=== PATIENT | female | born 2005 | race Hispanic/Latino ===

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

== ENCOUNTER 2025-01-11 01:44 | Emergency (ER) | payer OTHER, SELFPAY ==
--- OUTSIDE RECORDS SUMMARY | 2025-01-11 01:49 | XMS REPORT | Continuity of Care Document ---
Author Name Unknown Address [address] [facility] [place] [address] [facility] Address [address] [facility] [place] [address] Care Team Providers Care [employer] Name Role Phone PCP, PATIENT DOES NOT HAVE A Primary Care Physic eugene Unavailable SAVANAH GONZALES Attending Clinician Unavailable SAVANAH GONZALES Attending Clinician Unavailable Doctor Unassigned, [place] Attending Clinician U Savanah Wilson MD Attending Clinician [phone] Anders Vences MD Attending Clinician [phone] Lab, Rafa Bean Attending Clinician Unavailable 2, [facility] Attending Clinician Unavailable PARVEEN TURCIOS Attending Clinician Unavailable PARVEEN TURCIOS Attending Clinician Unavailable PARVEEN TURCIOS Attending Clinician Unavailable 3, [facility] Room Attending Clinician UnavailParveen Ceja MD Attending Clinician [phone] Doctor Unassigned, [place] Attending Clinician U navailable Gonzalo, Ang - Db Attending Clinician Unavailable SAVANAH GONZALES Admitting Clinician Unavailable Savanah Gonzales MD Admitting Clinician [phone] Payers Payer Name Policy Type Policy Number Effective Date Expirati on Date Source [facility] [id number] 2024 00:00:00 Problems Condition Name Condition Details Condition Category Status Onset Date Resolution Date Last Treatment Date Treating Clinician Comments Source 39 weeks gestation of 39 weeks gestation of Disease Resolve d 2023-11 00:00: 2024-11-17 00:00:00 2024-11-17 15:48:21 [facility] Liveborn infant, of sher , born in hospital by vaginal delivery Liveborn , of sher , born in hospital by vaginal delivery Disease Resolve d 2023- 2-03 00:00: 00 2024-11-17 00:00:00 2024-11-17 15:24:56 [facility] Encounter for induction of labor Encounter for induction of labor Disease Resolve d 2023-11 2- 00:00: 00 2024-11-17 00:00:00 2024-11-17 15:48:21 [facility] Encounter for supervisio n of normal first in second trimester Encounter for supervisio n of normal first in second trimester Disease Resolve d 0 6-12 00:00: 00 2024-10-06 00:00:00 2024-10-06 07:19:11 [facility] 15 weeks gestation of 15 weeks gestation of Disease Resolve d 12 00:00: 00 2024-10-06 00:00:00 2024-10-06 07:19:08 [facility] Allergies, Adverse Reactions, Alerts Allergy Name Allergy Type Status Severity Reaction(s) Onset Date Inactive Date Treating Clinician Comments Source NO KNOWN ALLERGIE S Drug Class Active [facility] Family History Family Member Diagnosis Comments Start Date Stop Date Sourc e Natural father [facility] Maternal grandmother [facility] Natural mother Heart [facility] Social History Social Habit Start Date Stop Date Quantity Comments Source ASSERTION 2024-01-15 00:00:00 [facility] History of tobacco use Cigarette Smoker [facility] Tobacco Comment 2024-10-06 00:00:00 2024-10-06 00:00:00 Quit 12/2023 [facility] History of Social function 2024-08-25 00:00:00 2024-08-25 00:00:00 [facility] Tobacco use and exposure 2024-04-15 00:00:00 2024-04-15 00:00:00 Smokeless tobacco non-user [facility] Alcoholic beverage intake 2024-04-15 00:00:00 2024-04-15 00:00:00 Ex-drinker (finding) [facility] Sex assigned at 2005 00:00:00 2005 00:00:00 [facility] Smoking Status Start Date Stop Date Source Ex-smoker 2024-04-15 00:00:00 2024-04-15 00:00:00 [facility] Medications Ordered Medication Name Filled Medication Name Start Date Stop Date Current Medication? Ordering Clinician Indication Dosage Frequency Signature (SIG) Comments Components Source levonorgest reL (MIRENA) IUD 1 Device 11-18 21:30: 00 11-18 20:34 :00 No [id number] 1{devic e} 1 Device, Intrauteri ne, ONCE, 1 dose, On Sat11/18/24 at 1530, Routine [facility] ibuprofen (IBU) tablet 600 mg 2023-11 03:17: 20 Yes 600mg 600 mg, Oral, Q8HPRN, Starting on Sat10/06/24 at 2117, Until Discontinu ed, Routine, Pain (scale 4-6) [facility] vitamin w/FA tablet 2023-11 00:00: 00 Yes [id number] 102 1{tbl} Take 1 tablet by mouth in the morning. [facility] docusate 100 mg capsule 2023-11 00:00: 00 Yes [id number] 102 200mg Take 2 capsules by mouth once daily as needed for Constipati on. [facility] ferrous sulfate 325 mg (65 mg iron) tablet 2023-11 00:00: 00 Yes [id number] 102 325mg Take 1 tablet by mouth in the morning. [facility] ibuprofen 800 mg tablet 2023-11 00:00: 00 Yes [id number] 102 800mg Take 1 tablet by mouth every 8 (eight) hours as needed (pain). Take with food or milk. [facility] acetaminoph en (TYLENOL) tablet 650 mg 2023-11 23:17: 25 Yes 650mg 650 mg, Oral, Q8HPRN, Starting on Sat10/06/24 at 1717, Until Discontinu ed, Routine, Pain (scale 4-6), Alternate with ibuprofen for pain scale 4-6, [facility] HYDROcodone -acetaminop hen (NORCO 5) tablet 1 tablet 2023-11 23:16: 37 Yes 1{tbl} 1 tablet, Oral, Q6HPRN, Starting on Sat10/06/24 at 1716, Until Discontinu ed, Routine, Pain (scale 7-10) [facility] diphenhydrA MINE (BENADRYL) tablet 25 mg 2023-11 23:16: 37 Yes 25mg [facility] ondansetron (ZOFRAN (PF)) injection 4 mg 2023-11 23:16: 37 Yes 4mg [facility] simethicone (GAS RELIEF (SIMETHICON E)) chewable tablet 160 mg 2023-11 23:16: 37 Yes 160mg [facility] docusate (COLACE) capsule 200 mg 2023-11 23:16: 37 Yes 200mg [facility] magnesium hydroxide (MILK OF MAGNESIA) 400 mg/5 mL suspension 30 mL 2023-11 23:16: 37 Yes 30mL [facility] benzocaine- menthol (DERMOPLAST ) 20-0.5 % topical spray 2023-11 23:16: 37 Yes Topical, PRN, Starting on Sat10/06/24 at 1716, Until Discontinu ed, Routine, Perineum discomfort [facility] amnioinfusi on IV infusion via PUMP 0.9 NaCL 500 mL 2023-11 18:15: 00 10-06 19:04 :00 No 500mL at 500 mL/hr, Intrauteri ne, ONCE, 1 dose, On Sat10/06/24 at 1215, GUNNAR, Infuse via Intrauteri ne Pressure Catheter. The infusion is started at 500 mL/hr by volume controlled infusion pump. "The infusion pump should be clearly labeled AMNIOINF USION. Once 500 mL has been infused, the infusion may be discontinu ed. Notify Finance Consultant if uterine resting tone exceeds 25 mmHg at any time during the amnioinfus ion. Obstetrics (JOSE ARMANDO) Aminoinfus ion Orders [facility] terbutaline (BRETHINE) injection 0.25 mg 2023-11 17:30: 00 10-06 17:32 :00 No .25mg 0.25 mg, Subcutaneo us, ONCE, 1 dose, On Sat10/06/24 at 1145, Routine [facility] oxytocin (PITOCIN) 30 units in NS 500 mL IV infusion 2023-11 15:30: 00 10-06 23:18 :22 No 2mU/min at 2-40 mL/hr, IV Infusion, TITRATE, Starting on Sat10/06/24 at 0930, Until Sat10/06/24 at 1718, GUNNAR [facility] fentaNYL-ro pivacaine 2 mcg/mL-0.1 % (PF) in NS 200 mL epidural infusion RTU 2023-11 14:31: 00 10-07 19:14 :32 No Intra-op [facility] lidocaine-e pinephrine (XYLOCAINE W/EPINEPHRI NE) 1.5 %-1:200,000 injection 2023-11 14:31: 00 10-07 19:14 :32 No Epidural, ONCE INTRA PROCEDURE, Starting on Sat10/06/24 at 0831, Until Sat10/07/24 at 1314, Routine, Intra-op [facility] miSOPROStol (CYTOTEC) quarter-tab let 25 mcg 2023-11 07:00: 00 10-06 06:42 :00 No 25ug 25 mcg, Oral, ONCE, 1 dose, On Sat10/06/24 at 0100, Routine [facility] proMETHazin e (PHENERGAN) 25 mg in NS 50 mL IV piggyback (CNR) 2023-11 05:49: 38 10-06 23:18 :22 No 25mg 25 mg, IV Piggyback, at 200 mL/hr Administer over 15 Minutes, Q6HPRN, Starting on Sat10/05/24 at 2349, Until Sat10/06/24 at 1718, Routine, Nausea and Vomiting (N/V) [facility] FENTanyl (PF) (SUBLIMAZE) injection 100 mcg 2023-11 05:49: 00 10-06 23:18 :22 No 100ug 100 mcg, Slow IV Push, Q1HPRN, Starting on Sat10/05/24 at 2349, Until Sat10/06/24 at 1718, Routine, Pain (scale 7-10) [facility] lactated ringers IV infusion 250 mL 2023-11 05:43: 47 10-06 23:18 :22 No 250mL at 999 mL/hr, 250 mL, IV Infusion, PRN - SEE INSTRUCTIO NS, Starting on Sat10/05/24 at 2343, Until Sat10/06/24 at 1718, Routine [facility] D5W-LR IV infusion 1,000 mL 2023-11 05:43: 47 10-06 23:18 :22 No 1000mL at 1-75 mL/hr, IV Infusion, TITRATE, Starting on Sat10/05/24 at 2343, Until Sat10/06/24 at 1718, Routine [facility] azithromyci n 500 mg tablet 05-27 00:00: 00 07-16 00:00 :00 No [id number] 01 1000mg Take 2 tablets by mouth in the morning. [facility] ferrous sulfate (IRON, FERROUS SULFATE,) 325 mg (65 mg iron) tablet 04-24 00:00: 00 04-24 00:00 :00 No 325mg Take 1 tablet by mouth in the morning. [facility] azithromyci n 500 mg tablet 04-18 00:00: 00 05-26 00:00 :00 No [id number] 01 1000mg Take 2 tablets by mouth in the morning. [facility] vit no.124/iron /folic ( VITAMIN ORAL) 12 14:45: 41 10-07 00:00 :00 No Take by mouth. [facility] Immunizations Ordered Immunization Name Filled Immunization Name Date Status Comments Source RSV, Bivalent Protein Subunit RSVprdF 2024-08-11 00:00:00 Completed [facility] TDAP 2024-07-16 00:00:00 Completed [facility] Flu Injectable MDCK Pres-Free (FLUCELVAX) 2024-07-16 00:00:00 Completed TDAP Unknown Completed [facility] Flu Injectable MDCK Pres-Free (FLUCELVAX) Unknown Completed [facility] TDAP Unknown Completed [facility] Flu Injectable MDCK Pres-Free (FLUCELVAX) Unknown Completed [facility] Vital Signs Vital Name Observation Time Observation Value Comments S ource Systolic blood pressure 2024-11-18 19:45:00 112 mm[Hg] [facility] Diastolic blood pressure 2024-11-18 19:45:00 68 mm[Hg] [facility] Heart rate 2024-11-18 19:45:00 106 /min [facility] Respiratory rate 2024-11-18 19:45:00 18 /min [facility] Body height 2024-11-18 19:45:00 162.6 cm [facility] Body weight 2024-11-18 19:45:00 96.616 kg [facility] BMI 2024-11-18 19:45:00 36.56 kg/m2 [facility] Systolic blood pressure 2024-11-17 21:36:00 109 mm[Hg] [facility] Diastolic blood pressure 2024-11-17 21:36:00 71 mm[Hg] [facility] Heart rate 2024-11-17 21:36:00 93 /min [facility] Body temperature 2024-11-17 21:36:00 36.94 Pam [facility] Respiratory rate 2024-11-17 21:36:00 16 /min [facility] Body height 2024-11-17 21:36:00 165.1 cm [facility] Body weight 2024-11-17 21:36:00 96.616 kg [facility] BMI 2024-11-17 21:36:00 35.45 kg/m2 [facility] Systolic blood pressure 2024-10-07 21:11:00 97 mm[Hg] [facility] Diastolic blood pressure 2024-10-07 21:11:00 50 mm[Hg] [facility] Heart rate 2024-10-07 21:11:00 80 /min [facility] Body temperature 2024-10-07 21:11:00 36.44 Pam [facility] Respiratory rate 2024-10-07 21:11:00 16 /min [facility] Oxygen saturation in Arterial blood by Pulse oximetry 2024-10-07 21:11:00 100 /min [facility] Body height 2024-10-06 05:45:00 165.1 cm [facility] Body weight 2024-10-06 05:45:00 104.327 kg [facility] BMI 2024-10-06 05:45:00 38.27 kg/m2 [facility] Systolic blood pressure 2024-09-29 22:02:00 90 mm[Hg] [facility] Diastolic blood pressure 2024-09-29 22:02:00 63 mm[Hg] [facility] Heart rate 2024-09-29 22:02:00 86 /min [facility] Respiratory rate 2024-09-29 22:02:00 18 /min [facility] Body height 2024-09-29 22:02:00 165.1 cm [facility] Body weight 2024-09-29 22:02:00 103.193 kg [facility] BMI 2024-09-29 22:02:00 37.86 kg/m2 [facility] Systolic blood pressure 2024-09-22 21:51:00 106 mm[Hg] [facility] Diastolic blood pressure 2024-09-22 21:51:00 60 mm[Hg] [facility] Heart rate 2024-09-22 21:51:00 100 /min [facility] Respiratory rate 2024-09-22 21:51:00 18 /min [facility] Body height 2024-09-22 21:51:00 165.1 cm [facility] Body weight 2024-09-22 21:51:00 101.696 kg [facility] BMI 2024-09-22 21:51:00 37.31 kg/m2 [facility] Systolic blood pressure 2024-09-15 22:04:00 107 mm[Hg] [facility] Diastolic blood pressure 2024-09-15 22:04:00 69 mm[Hg] [facility] Heart rate 2024-09-15 22:04:00 98 /min [facility] Body temperature 2024-09-15 22:04:00 37 Pam [facility] Respiratory rate 2024-09-15 22:04:00 18 /min [facility] Body height 2024-09-15 22:04:00 165.1 cm [facility] Body weight 2024-09-15 22:04:00 100.88 kg [facility] BMI 2024-09-15 22:04:00 37.01 kg/m2 [facility] Body height 2024-09-08 22:37:00 162.6 cm [facility] Body weight 2024-09-08 22:37:00 102.059 kg [facility] BMI 2024-09-08 22:37:00 38.62 kg/m2 Univ [facility] Systolic blood pressure 2024-09-08 22:24:00 110 mm[Hg] [facility] Diastolic blood pressure 2024-09-08 22:24:00 72 mm[Hg] [facility] Heart rate 2024-09-08 22:24:00 97 /min [facility] Body temperature 2024-09-08 22:24:00 36.72 Pam [facility] Respiratory rate 2024-09-08 22:24:00 16 /min [facility] Systolic blood pressure 2024-08-25 20:34:00 112 mm[Hg] [facility] Diastolic blood pressure 2024-08-25 20:34:00 74 mm[Hg] [facility] Heart rate 2024-08-25 20:34:00 112 /min [facility] Respiratory rate 2024-08-25 20:34:00 18 /min [facility] Body weight 2024-08-25 20:34:00 100.018 kg Univ [facility] BMI 2024-08-25 20:34:00 37.85 kg/m2 [facility] Oxygen saturation in Arterial blood by Pulse oximetry 2024-08-25 20:34:00 100 /min [facility] Systolic blood pressure 2024-08-11 20:10:00 109 mm[Hg] [facility] Diastolic blood pressure 2024-08-11 20:10:00 72 mm[Hg] [facility] Heart rate 2024-08-11 20:10:00 103 /min [facility] Body height 2024-08-11 20:10:00 162.6 cm [facility] Body weight 2024-08-11 20:10:00 97.977 kg [facility] BMI 2024-08-11 20:10:00 37.08 kg/m2 [facility] Systolic blood pressure 2024-07-28 13:41:00 114 mm[Hg] [facility] Diastolic blood pressure 2024-07-28 13:41:00 70 mm[Hg] [facility] Heart rate 2024-07-28 13:41:00 99 /min [facility] Body temperature 2024-07-28 13:41:00 37 Pam [facility] Respiratory rate 2024-07-28 13:41:00 18 /min [facility] Body height 2024-07-28 13:41:00 162.6 cm [facility] Body weight 2024-07-28 13:41:00 95.709 kg [facility] BMI 2024-07-28 13:41:00 36.22 kg/m2 [facility] Systolic blood pressure 2024-07-16 20:36:00 120 mm[Hg] [facility] Diastolic blood pressure 2024-07-16 20:36:00 67 mm[Hg] [facility] Heart rate 2024-07-16 20:36:00 76 /min [facility] Body temperature 2024-07-16 20:36:00 36.5 Pam [facility] Respiratory rate 2024-07-16 20:36:00 18 /min [facility] Body weight 2024-07-16 20:36:00 94.802 kg [facility] BMI 2024-07-16 20:36:00 35.87 kg/m2 [facility] Systolic blood pressure 2024-06-30 20:38:00 129 mm[Hg] [facility] Diastolic blood pressure 2024-06-30 20:38:00 73 mm[Hg] [facility] Heart rate 2024-06-30 20:38:00 70 /min [facility] Respiratory rate 2024-06-30 20:38:00 18 /min [facility] Body height 2024-06-30 20:38:00 162.6 cm [facility] Body weight 2024-06-30 20:38:00 90.719 kg [facility] BMI 2024-06-30 20:38:00 34.33 kg/m2 [facility] Systolic blood pressure 2024-06-17 18:39:00 109 mm[Hg] [facility] Diastolic blood pressure 2024-06-17 18:39:00 71 mm[Hg] [facility] Heart rate 2024-06-17 18:39:00 62 /min [facility] Respiratory rate 2024-06-17 18:39:00 15 /min [facility] Body height 2024-06-17 18:39:00 162.6 cm [facility] Body weight 2024-06-17 18:39:00 88.905 kg [facility] BMI 2024-06-17 18:39:00 33.64 kg/m2 [facility] Systolic blood pressure 2024-05-26 20:52:00 107 mm[Hg] [facility] Diastolic blood pressure 2024-05-26 20:52:00 61 mm[Hg] [facility] Heart rate 2024-05-26 20:52:00 90 /min [facility] 2024-05-26 20:52:00 16 /min [facility] Body height 2024-05-26 20:52:00 162.6 cm [facility] Body weight 2024-05-26 20:52:00 84.823 kg [facility] BMI 2024-05-26 20:52:00 32.10 kg/m2 [facility] Systolic blood pressure 2024-04-15 19:43:00 102 mm[Hg] [facility] Diastolic blood pressure 2024-04-15 19:43:00 70 mm[Hg] [facility] Heart rate 2024-04-15 19:43:00 84 /min [facility] Res[facility] 2024-04-15 19:43:00 18 /min [facility] Body height 2024-04-15 19:43:00 163.8 cm [facility] Body weight 2024-04-15 19:43:00 81.194 kg [facility] BMI 2024-04-15 19:43:00 30.25 kg/m2 [facility] Systolic blood pressure 2024-11-18 19:45:00 112 mm[Hg] [facility] Diastolic blood pressure 2024-11-18 19:45:00 68 mm[Hg] [facility] Heart rate 2024-11-18 19:45:00 106 /min [facility] Res[facility] rate 2024-11-18 19:45:00 18 /min [facility] Body height 2024-11-18 19:45:00 162.6 cm [facility] Body weight 2024-11-18 19:45:00 96.616 kg [facility] BMI 2024-11-18 19:45:00 36.56 kg/m2 [facility] Body temperature 2024-11-17 21:36:00 36.94 Pam [facility] Oxygen saturation in Arterial blood by Pulse oximetry 2024-10-07 21:11:00 100 /min [facility] Procedures Procedure Date / Time Performed Performing Clinician Source POCT TEST 2024-11-18 00:00:00 Adum, Savanah Bach [facility] POCT TEST 2024-11-18 00:00:00 Adum, Savanah Bach [facility] GC & CHLAMYDIA AMPLIFIED ASSAY 2024-11-17 22:06:00 Adum, Savanah Bach [facility] CBC WITH DIFF 2024-10-07 10:17:00 Adum, Savanah [facility] CBC WITH DIFF 2024-10-07 10:17:00 Adum, Savanah [facility] CENTRAL NEURAXIAL BLOCK 2024-10-06 15:15:00 Kibmer Vences [facility] CENTRAL NEURAXIAL BLOCK 2024-10-06 15:15:00 Kimber Vences [facility] CBC WITH DIFF 2024-10-06 06:25:00 Adum, [facility] HEPATITIS B SURFACE ANTIGEN 2024-10-06 06:25:00 Adum, Savanah Bach [facility] HB ABO GROUPING 2024-10-06 06:25:00 Adum, Savanah Huntley [facility] ADC OR REHANA ONLY - RPR 2024-10-06 06:25:00 Adum, Savanah Bach [facility] HIV 1/2 AG-AB WITH REFLEX 2024-10-06 06:25:00 Adum, Savanah Bach [facility] HEPATITIS B SURFACE ANTIGEN 2024-10-06 06:25:00 Adum, Savanah Bach [facility] ADC OR REHANA ONLY - RPR 2024-10-06 06:25:00 Adum, Savanah Bach [facility] HB ABO GROUPING 2024-10-06 06:25:00 Adum, Savanah Huntley [facility] CBC WITH DIFF 2024-10-06 06:25:00 Adum, Savanah [facility] HIV 1/2 AG-AB WITH REFLEX 2024-10-06 06:25:00 Adum, Savanah Mikala [facility] POCT URINALYSIS W/O SPECIFIC GRAVITY 2024-09-29 00:00:00 Adum, Savanah Bach [facility] POCT URINALYSIS W/O SPECIFIC GRAVITY 2024-09-29 00:00:00 Adum, Savanah Mikala [facility] POCT URINALYSIS W/O SPECIFIC GRAVITY 2024-09-22 00:00:00 Adum, Savanah Mikala [facility] POCT URINALYSIS W/O SPECIFIC GRAVITY 2024-09-22 00:00:00 Adum, Savanah Mikala [facility] DME/SUPPLY JUSTIFICATION 2024-09-18 17:36:53 Doc tor Unassigned, [place] [facility] DME/SUPPLY JUSTIFICATION 2024-09-18 17:36:53 Doc tor Unassigned, [place] [facility] POCT URINALYSIS W/O SPECIFIC GRAVITY 2024-09-15 22:02:00 Adum, Savanah Bach [facility] DSU PRE-OP 2024-09-08 22:50:46 Doctor Unass igned, [place] [facility] >14 WEEKS US LIMITED 2024-09-08 22:39:36 Adum, Savanah Bach [facility] POCT URINALYSIS W/O SPECIFIC GRAVITY 2024-09-08 22:24:00 Adum, Savanah Mikala [facility] POCT URINALYSIS W/O SPECIFIC GRAVITY 2024-08-25 20:36:00 Adum, Savanah Mikala [facility] RSV, BIVALENT, PROTEIN SUBUNIT RSVPREF, DILUENT RECONSTITUTED, 0.5 ML, PF, (ABRYSVO) 2024-08-11 20:34:31 Adum, Savanah Mikala [facility] POCT URINALYSIS W/O SPECIFIC GRAVITY 2024-08-11 00:00:00 Adum, Savanah Mikala [facility] POCT URINALYSIS W/O SPECIFIC GRAVITY 2024-07-28 00:00:00 Adum, Savanah Mikala [facility] TDAP VACCINE, >11 YRS, IM 2024-07-16 21:26:08 Adum, Savanah Bach [facility] FLU VACC (2502-2610), 6 MO-64 YRS, .5ML, IM, TIV (FLUCELVAX) 2024-07-16 21:26:08 Adum, Savanah Bach [facility] POCT URINALYSIS W/O SPECIFIC GRAVITY 2024-07-16 00:00:00 Adum, Savanah Bach [facility] POCT URINALYSIS W/O SPECIFIC GRAVITY 2024-06-30 00:00:00 Adum, Savanah Bach [facility] POCT URINALYSIS W/O SPECIFIC GRAVITY 2024-06-17 00:00:00 Adum, Savanah Bach [facility] SECOND AND THIRD TRIMESTER ULTRASOUND 2024-06-15 16:39:00 Adum, Savanah Bach [facility] POCT URINALYSIS W/O SPECIFIC GRAVITY 2024-05-26 00:00:00 Adum, Savanah Bach [facility] POCT URINALYSIS W/O SPECIFIC GRAVITY 2024-05-22 00:00:00 Adum, Savanah Bach [facility] SCANNED LAB RESULTS 2024-05-05 19:59:35 Doctor U elyse, [place] [facility] SCANNED LAB RESULTS 2024-05-05 19:59:29 Doctor Chaparrita pappas, [place] [facility] URINE DRUG (IMMUNOASSAY) - COMPREHENSIVE DRUG SCREEN 2024-04-20 15:21:00 Adum, Savanah Bach [facility] URINE CULTURE 2024-04-20 15:21:00 Adum, Savanah [facility] HCV ANTIBODY 2024-04-20 15:18:00 [facility] HOUR POST PRAND[facility] 2024-04-20 15:18:00 Adum, Savanah Bach [facility] ALPHA FETOPROTEIN-MATERNAL SER 2024-04-20 15:18:00 Adum, Savanah Bach [facility] CBC WITH DIFF 2024-04-20 15:18:00 Adum, Savanah [facility] RUBELLA SCREEN IGG 2024-04-20 15:18:00 Adum, Savanah Bach [facility] VZV ANTIBODY SCREEN 2024-04-20 15:18:00 Adum, Savanah Bach [facility] HEPATITIS B SURFACE ANTIGEN 2024-04-20 15:18:00 Adum, Savanah Bach [facility] HCV ANTIBODY 2024-04-20 15:18:00 Adum, [facility] HB ABO GROUPING 2024-04-20 15:18:00 Adum, [facility] - RPR 2024-04-20 15:18:00 Adum, Savanah Bach [facility] HIV 1/2 AG-AB WITH REFLEX 2024-04-20 15:18:00 Adum, Savanah Bach [facility] PAP SMEAR-LIQUID BASED-CP 2024-04-15 20:19:00 Adum, Savanah Bach [facility] POCT URINALYSIS W/O SPECIFIC GRAVITY 2024-04-15 00:00:00 Adum, Savanah Bach [facility] Encounters Start Date/Time End Date/Time Encounter Type Admission Type Attending [facility] Care Facility Care Department Encounter ID Source 2024-09-30 15:00:48 Outpatient P [facility] JOSE ARMANDO [id number] [facility] 2025-01-19 15:00:00 2025-01-19 15:00:00 Outpatient R SAVANAH GONZALES [facility] [id number] [facility] 2025-01-06 13:00:00 2025-01-06 13:00:00 Outpatient R SAVANAH GONZALES [facility] [id number] [facility] 2024-05-05 00:00:00 2024-12-19 07:23:53 Orders Only Doctor Unassigned, [place] Doctor Unassigned, [place] [facility] ([place] 1.2.840.114 350.1.13.10 4.2.7.2.686 [id number] [facility] 2024-05-05 00:00:00 2024-12-19 07:23:36 Orders Only Doctor Unassigned, [place] Doctor Unassigned, [place] [facility] ([place] 1.2.840.114 350.1.13.10 4.2.7.2.686 [id number] [facility] 2024-09-08 00:00:00 2024-12-19 06:41:20 Orders Only Doctor Unassigned, [place] Doctor Unassigned, [place] [facility] ([place] 1.2.840.114 350.1.13.10 4.2.7.2.686 [id number] [facility] 2024-09-18 00:00:00 2024-12-19 06:37:36 Orders Only Doctor Unassigned, [place] 1.2.840.1 69397.1.1 3.104.2.7 .3.271797 .8 [id number] [facility] 2024-11-09 00:00:00 2024-12-12 18:20:16 Patient Secure Msg Doctor Unassigned, [place] 1.2.840.1 30112.1.1 3.104.2.7 .3.889771 .8 [id number] [facility] 2024-11-18 14:00:00 2024-11-18 14:24:55 Outpatient R SAVANAH GONZALES [facility] [id number] [facility] 2024-11-18 14:00:00 2024-11-18 14:24:55 Office Visit Savanah Gonzales 1.2.840.1 69509.1.1 3.104.2.7 .3.433587 .8 [id number] [facility] 2024-11-18 00:00:00 2024-11-18 00:00:00 Travel 1.2.840.1 39154.1.1 3.104.2.7 .3.597595 .8 1.2.840.114 350.1.13.10 4.2.7.3.698 084.8 [id number] [facility] 2024-11-17 15:00:00 2024-11-17 16:02:52 Out[place] [id number] [facility] 2024-11-17 15:00:00 2024-11-17 16:02:52 Routine Visit Savanah Gonzales 1.2.840.1 11794.1.1 3.104.2.7 .3.658330 .8 [id number] [facility] 2024-11-17 11:00:00 2024-11-17 11:00:00 Outpatient R ADUMSAVANAH [facility] [id number] [facility] 2024-11-17 00:00:00 2024-11-17 00:00:00 Travel 1.2.840.1 83878.1.1 3.104.2.7 .3.883950 .8 1.2.840.114 350.1.13.10 4.2.7.3.698 084.8 [id number] [facility] 2024-10-05 23:41:00 2024-10-07 19:38:00 Inpatient P ADSAVANAH MATSON [facility] JOSE ARMANDO [id number] [facility] 2024-10-05 23:41:00 2024-10-07 19:38:00 Hospital Encounter Savanah Gonzales 1.2.840.1 18608.1.1 3.104.2.7 .3.425704 .8 [id number] [facility] 2024-10-06 08:03:00 2024-10-06 18:30:00 Anesthesia Event Anders Vences 1.2.840.1 38300.1.1 3.104.2.7 .3.815328 .8 [id number] [facility] 2024-10-06 00:00:00 2024-10-06 00:00:00 Travel 1.2.840.1 47752.1.1 3.104.2.7 .3.155170 .8 1.2.840.114 350.1.13.10 4.2.7.3.698 084.8 [id number] [facility] 2024-10-05 23:34:39 2024-10-05 23:34:00 Emergency [facility] [id number] [facility] 2024-10-05 00:00:00 2024-10-05 23:34:00 Emergency 1.2.840.1 79341.1.1 3.104.2.7 .3.503982 .8 [id number] [facility] 2024-09-30 00:00:00 2024-09-30 13:55:51 Telephone Savanah Gonzales 1.2.840.1 72916.1.1 3.104.2.7 .3.806800 .8 [id number] [facility] 2024-09-29 15:45:00 2024-09-29 16:25:17 Outpatient R SAVANAH GONZALES [facility] [id number] [facility] 2024-09-29 15:45:00 2024-09-29 16:25:17 Routine Visit Savanah Gonzales 1.2.840.1 68846.1.1 3.104.2.7 .3.505602 .8 [id number] [facility] 2024-09-29 00:00:00 2024-09-29 00:00:00 Travel 1.2.840.1 07549.1.1 3.104.2.7 .3.514359 .8 1.2.840.114 350.1.13.10 4.2.7.3.698 084.8 [id number] [facility] 2024-09-22 16:00:00 2024-09-22 16:41:16 Outpatient R SAVANAH GONZALES [facility] [id number] [facility] 2024-09-22 16:00:00 2024-09-22 16:41:16 Routine Visit Savanah Gonzales 1.2.840.1 33048.1.1 3.104.2.7 .3.705999 .8 [id number] [facility] 2024-09-22 00:00:00 2024-09-22 00:00:00 Travel 1.2.840.1 23935.1.1 3.104.2.7 .3.524359 .8 1.2.840.114 350.1.13.10 4.2.7.3.698 084.8 [id number] [facility] 2024-09-16 00:00:00 2024-09-16 09:45:27 Telephone [facility]ah Gonzales [facility] 1.0.114 350.1.13.10 4.2.7.2.686 [id number] 134 [id number] [facility] 2024-09-15 16:00:00 2024-09-15 16:23:39 Outpatient R SAVANAH GONZALES [facility] [id number] [facility] 2024-09-15 16:00:00 2024-09-15 16:23:39 Routine Visit Savanah Gonzales [facility] 1.0.114 350.1.13.10 4.2.7.2.686 [id number] 134 [id number] [facility] 2024-09-11 09:15:00 2024-09-11 09:15:00 Manager Of Applications Development Visit Lab, Savanah Ornelas, Rafa Bean [facility] 1.840.114 350.1.13.10 4.2.7.2.686 [id number] [facility] 2024-09-11 09:15:00 2024-09-11 09:12:31 Outpatient R ADUMSAVANAH [facility] [id number] [facility] 2024-09-08 16:15:00 2024-09-08 16:39:39 Outpatient R ADUMSAVANAH [facility] [id number] [facility] 2024-09-08 16:15:00 2024-09-08 16:39:39 Routine Visit AdSavanah matson [facility] 1.2.840.114 350.1.13.10 4.2.7.2.686 [id number] [facility] 2024-08-25 15:30:00 2024-08-25 15:53:41 Outpatient R ADUM, SAVANAH PEREZ [facility] [id number] [facility] 2024-08-25 15:30:00 2024-08-25 15:53:41 Routine Visit AdSavanah matson [facility] 1.2.840.114 350.1.13.10 4.2.7.2.686 [id number] 134 [id number] [facility] 2024-08-11 15:15:00 2024-08-11 15:40:33 Outpatient R ADUM, SAVANAH PEREZ [facility] [id number] [facility] 2024-08-11 15:15:00 2024-08-11 15:40:33 Routine Visit AdSavanah matson [facility] 1.2.840.114 350.1.13.10 4.2.7.2.686 [id number] 134 [id number] [facility] 2024-07-28 15:30:00 2024-07-28 15:30:00 Outpatient R ADUM, SAVANAH PERE[facility] [id number] [facility] 2024-07-28 08:30:00 2024-07-28 09:01:50 Outpatient R ADUMSAVANAH [facility] [id number] [facility] 2024-07-28 08:30:00 2024-07-28 09:01:50 Routine Visit AdSavanah matson [facility] 1.2.840.114 350.1.13.10 4.2.7.2.686 [id number] 134 [id number] [facility] 2024-07-16 15:30:00 2024-07-16 16:26:24 Outpatient R ADUMSAVANAH [facility] [id number] [facility] 2024-07-16 15:30:00 2024-07-16 16:26:24 Routine Visit Ad, Savanah Bach [facility] 1.2.840.114 350.1.13.10 4.2.7.2.686 [id number] 134 [id number] [facility] 2024-07-14 15:30:00 2024-07-14 15:30:00 Outpatient R ADUMSAVANAH [facility] [id number] [facility] 2024-05-29 00:00:00 2024-07-04 18:24:57 Patient Secure Msg Doctor Unassigned, [place] Doctor Unassigned, [place] [facility] 1.2.840.114 350.1.13.10 4.2.7.2.686 [id number] 134 [id number] [facility] 2024-06-30 15:45:00 2024-06-30 16:24:41 Outpatient R ADUMSAVANAH [facility] [id number] [facility] 2024-06-30 15:45:00 2024-06-30 16:24:41 Routine Visit Adum, Savanah Bach [facility] 1.2.840.114 350.1.13.10 4.2.7.2.686 [id number] 134 [id number] [facility] 2024-06-29 00:00:00 2024-06-29 09:54:05 Letter (Out) 2, Adc Lab 2, [facility] Lab [facility] 1.2.840.114 350.1.13.10 4.2.7.2.686 [id number] [facility] 2024-06-29 08:15:00 2024-06-29 08:30:00 Manager Of Applications Development Visit 2, Adc Lab Adhuyen, Savanah Bach 2, [facility] Lab [facility] 1.2.840.114 350.1.13.10 4.2.7.2.686 [id number] [facility] 2024-06-29 08:15:00 2024-06-29 08:15:00 Outpatient [place] [id number] [facility] 2024-06-17 13:30:00 2024-06-17 13:53:09 Outpatient R [place]AVA[place] [id number] [facility] 2024-06-17 13:30:00 2024-06-17 13:53:09 Routine Visit Savanah Gonzales [facility] 1.2.840.114 350.1.13.10 4.2.7.2.686 [id number] 134 [id number] [facility] 2024-06-15 10:15:00 2024-06-15 11:53:59 Outpatient P PARVEEN TURCIOS, PARVEEN PRECIADO [facility] [id number] [facility] 2024-06-15 10:15:00 2024-06-15 11:53:59 Manager Of Applications Development Visit 3, [facility] Usg Room Parveen Turcios 3, [facility] 1.2.840.114 350.1.13.10 4.2.7.2.686 [id number] [facility] 2024-06-15 00:00:00 2024-06-15 11:53:51 Letter (Out) TurciosParveen carlton [facility] 1.2.840.114 350.1.13.10 4.2.7.2.686 [id number] [facility] 2024-06-01 00:00:00 2024-06-01 13:24:55 Telephone Adhuyen Savanah Bach [facility] 1.2.840.114 350.1.13.10 4.2.7.2.686 [id number] 134 [id number] [facility] 2024-05-27 00:00:00 2024-05-27 17:07:42 Case Management Adhuyen Savanah Bach [facility] 1.2840.114 350.1.13.10 4.2.7.2.686 [id number] 134 [id number] [facility] 2024-05-26 15:15:00 2024-05-26 16:07:54 Outpatient R ADHUYEN SAVANAHEUGENE GONZALES [facility] [id number] [facility] 2024-05-26 15:15:00 2024-05-26 16:07:54 Routine Visit Christian Savanah Bach [facility] 1.2.840.114 350.1.13.10 4.2.7.2.686 [id number] 134 [id number] [facility] 2024-04-21 00:00:00 2024-05-23 18:18:24 Patient Secure Msg Doctor Unassigned, [place] [facility] 1.2.840.114 350.1.13.10 4.2.7.2.686 [id number] [facility] 2024-05-22 00:00:00 2024-05-22 14:18:33 Case Management AdSavanah matson [facility] 1.2.840.114 350.1.13.10 4.2.7.2.686 [id number] 134 [id number] [facility] 2024-05-22 13:45:00 2024-05-22 14:00:00 [facility] 1.2.840.114 350.1.13.10 4.2.7.2.686 [id number] 134 [id number] [facility] 2024-05-22 13:45:00 2024-05-22 13:45:00 Outpatient R ADUM, SAVANAH [facility] [id number] [facility] 2024-05-20 00:00:00 2024-05-21 12:20:34 Telephone Ad [facility] 1.2.840.114 350.1.13.10 4.2.7.2.686 [id number] 134 [id number] [facility] 2024-05-13 15:45:00 2024-05-13 15:45:00 Outpatient R ADUM, SAVANAH ANGIEHUYEN [facility] [id number] [facility] 2024-04-30 00:00:00 2024-04-30 12:06:53 [facility] 1.2.840.114 350.1.13.10 4.2.7.2.686 [id number] 134 [id number] [facility] 2024-04-24 00:00:00 2024-04-27 09:38:17 Telephone Adum, Savanah [facility] 1.2.840.114 350.1.13.10 4.2.7.2.686 [id number] 134 [id number] [facility] 2024-04-23 00:00:00 2024-04-23 16:03:33 Telephone [facility]avanah mat[facility] 1.2.840.114 350.1.13.10 4.2.7.2.686 [id number] 134 [id number] [facility] 2024-04-20 09:00:00 2024-04-20 11:34:09 Manager Of Applications Development Visit Lab, Ang - Db Adhuyen, [facility] 1.2.840.114 350.1.13.10 4.2.7.2.686 [id number] [facility] 2024-04-20 09:00:00 2024-04-20 11:34:09 Outpatient R CHRISTIAN [facility] [id number] [facility] 2024-04-18 00:00:00 2024-04-18 11:46:05 Case Management Ad [facility] 1.2.840.114 350.1.13.10 4.2.7.2.686 [id number] 134 [id number] [facility] 2024-04-15 14:30:00 2024-04-15 15:18:59 Initial Visit Christian [facility] 1.2840.114 350.1.13.10 4.2.7.2.686 [id number] 134 [id number] [facility] 2024-04-15 14:30:00 2024-04-15 15:18:59 Outpatient R CHRISTIAN SAVANAH ADHUYEN [facility] [id number] [facility] Results Test Description Test Time Test Comments Results Result Co mments Source [facility] with Jtceewjbnkua2759-80-63 11:37:12* Test Item Value Reference Range Interpretation Comme nts WBC (test code = 6690-2) 13.58 4.30-11.10 H RBC (test code = 789-8) 3.18 3.93-5.25 L HGB (test code = 718-7) 9.0 g/dL 11.6-15.0 L HCT (test code = 4544-3) 27.2 % 35.7-45.2 L MCV (test code = 787-2) 85.5 fL 80.6-95.5 MCH (test code = 785-6) 28.3 pg 25.9-32.8 MCHC (test code = 786-4) 33.1 g/dL 31.6-35.1 RDW-SD (test code = 52572-6) 43.8 fL 39.0-49.9 RDW-CV (test code = 788-0) 14.1 % 12.0-15.5 PLT (test code = 777-3) 314 166-358 MPV (test code = 26164-9) 10.7 fL 9.5-12.9 NRBC/100 WBC (test code = 2928958116) 0.0 0.0-10.0 NRBC x10^3 (test code = 1936217984) See_Comment [Automated messa ge] The system which generated this result transmitted reference range: 10*3/?L. The reference range was not used to interpret this result as normal/abnormal. GRAN MAT (NEUT) % (test code = 770-8) 72.8 % IMM GRAN % (test code = 6809600750) 0.60 % LYMPH % (test code = 736-9) 18.1 % MONO % (test code = 5905-5) 8.0 % EOS % (test code = 713-8) 0.4 % BASO % (test code = 706-2) 0.1 % GRAN MAT x10^3(ANC) (test code = 5183775985) 9.89 10*3/uL 1.88-7.09 H IMM GRAN x10^3 (test code = 4025093843) 0.08 10*3/uL 0.00-0.06 H LYMPH x10^3 (test code = 731-0) 2.46 10*3/uL 1.32-3.29 MONO x10^3 (test code = 742-7) 1.08 10*3/uL 0.33-0.92 H EOS x10^3 (test code = 711-2) 0.05 10*3/uL 0.03-0.39 BASO x10^3 (test code = 704-7) 0.01-0.07 Lab Interpretation (test code = 39783-9) [facility] [id number] 15:15:00 Anders Vences MD ? ? 10/06/2024 ?9:16 AM Central Neuraxial Block Date/Time: 10/06/2024 9:15 AM Performed by: Anders Vences MDAuthorized by: Anders Vences MD ?Patient Location: OBReason for Block:OB request, Patient request, Labor analgesia, Surgical anesthesia and Post-op pain managementStaff: ?Anesthesiologist: Anders Vences MD ?Performed by: anesthesiologistPreanesthetic Checklist: patient identified, IV checked, risks and benefits explained, monitors and equipment checked, timeout performed, pre- op evaluation, site marked and anesthesia consentProcedure: ?Type of Neuraxial: Epidural ?Epidural Description: 1st attempt ? Sterility Prep cap, drape, gloves, hand hygiene and mask ?Patient Position: sitting ?Prep: Betadine and patient draped ? ?Monitoring: heart rate, continuous pulse ox, heart rate / toco and NIBP ?Location: lumbar (1-5) ?Lumbar: L3-L4 ?Approach: midline ? ?Technique: EPI air and catheter ?Guidance with: landmark technique}Epidural/Spinal Edwards and/or Catheter: ?Epidural/Spinal Kit: Doraun ?Needle Type: Tuohy ?Needle Gauge: 17 G ?Needle Length: 3.5 in (8.89 cm) ?Needle Insertion Depth: 7 ?Catheter Type: multiport ? ?Catheter Size: 19 G ? ?Catheter atSkin Depth: 12 ?Number of Attempts: 2 ?Test Dose: lidocaine 1.5% with epinephrine 1-to-200,000 ? ?Dose: 5 cc ? ?Catheter Securement Method: surgical tape, Tegaderm, clear occlusive dressing and liquid medical adhesiveAssessment: ?Block Outcome: patient tolerated procedure well ? ?Procedure Assessment: patient tolerated procedure well with no complicationsNotes: ? Patient consented and positioned sitting upright with instructions given regarding positioning and maintaining a sterile field. Patient prepped and draped in sterile fashion. Epidural kit opened and medications prepared utilizing sterile protocol. EPI to Saline was used midline at L3L4 interspace. EPI was at ?7 cm attempts x 2. Catheter threaded smoothly, taped at skin at 12 cm. Negative aspiration of blood or CSF x 3. Negative Test dose. Epidural catheter secured in place using tegederm and tape while maintaining insertion site sterility. Pumps settings are continuous 12cc/hr PCEA 4cc- 15 mins lockout. 5 ml bolus was given initially. Patient instructed to lay back down on back and given instructions on MATH AND SCIENCES DEPARTMENT CHAIR functionality. Fall precautions provided, patient vocalized understanding and all questions answered. ? Unable to push test dose through catheter,alligator clamp switched and new kit opened. [facility] Surface [id number] 12:31:59 * Test Item Value Reference Range Interpretation Comme nts HBsAg Semi-Quantitative (bridget t code = 5195-3) 0.08 Negative [facility] OR [facility] ONLY - [id number] 10:12:29* Test Item Value Reference Range Interpretation Comme nts RPR (Qualitative) (test code = 45954-5) Nonreactive Nonreactive Lab Interpretation (test cod e = 60287-2) Normal [facility] Ag-Ab with [id number] 07:56:19* Test Item Value Reference Range Interpretation Comme nts HIV Semi-quantitative (test code = 22351-0) 0.17 Negative JUDIT (test code = JUDIT) Non-reactive for HIV-1 antigen and HIV-1/HIV-2 antibodies. ?No laboratory evidence of HIV infection. ?Repeat in 2-4 weeks if acute HIV infection is suspected. [facility] with [id number] 06:45:56* Test Item Value Reference Range Interpretation Comme nts WBC (test code = 6690-2) 15.60 4.30-11.10 H RBC (test code = 789-8) 3.77 3.93-5.25 L HGB (test code = 718-7) 10.8 g/dL 11.6-15.0 L HCT (test code = 4544-3) 32.1 % 35.7-45.2 L MCV (test code = 787-2) 85.1 fL 80.6-95.5 MCH (test code = 785-6) 28.6 pg 25.9-32.8 MCHC (test code = 786-4) 33.6 g/dL 31.6-35.1 RDW-SD (test code = 42692-7) 43.1 fL 39.0-49.9 RDW-CV (test code = 788-0) 13.9 % 12.0-15.5 PLT (test code = 777-3) 347 166-358 MPV (test code = 32535-7) 10.2 fL 9.5-12.9 NRBC/100 WBC (test code = 7337409935) 0.0 0.0-10.0 NRBC x10^3 (test code = 1826731256) See_Comment [Automated message] The system which generated this result transmitted reference range: 10*3/?L. The reference range was not used to interpret this result as normal/abnormal. GRAN MAT (NEUT) % (test code = 770-8) 76.1 % IMM GRAN % (test code = 9238915547) 0.80 % LYMPH % (test code = 736-9) 17.1 % MONO % (test code = 5905-5) 5.5 % EOS % (test code = 713-8) 0.3 % BASO % (test code = 706-2) 0.2 % GRAN MAT x10^3(ANC) (test code = 8960450077) 11.89 10*3/uL 1.88-7.09 H IMM GRAN x10^3 (test code = 1562931849) 0.12 10*3/uL 0.00-0.06 H LYMPH x10^3 (test code = 731-0) 2.66 10*3/uL 1.32-3.29 MONO x10^3 (test code = 742-7) 0.86 10*3/uL 0.33-0.92 EOS x10^3 (test code = 711-2) 0.04 10*3/uL 0.03-0.39 BASO x10^3 (test code = 704-7) 0.03 10*3/uL 0.01-0.07 Lab Interpretation (test code = 78477-7) [facility]normal [facility] [place] - ONCE [id number] 06:43:00 * Test Item Value Reference Range Interpretation Comme nts ABO & RH (test code = 20) A POSITIVE IAT (test code = 1185) Negative [facility] [place] w/o Specific [id number] 21:59:00* Test Item Value Reference Range Interpretation Comme nts POCT PH U (test code = 3254) n/a 5-8 POCT U LEUK EST (test code = 3263) n/a Negative - Negative POCT U NIT (test code = 3262) n/a Negative - Negati ve POCT U PROT (test code = 3259) negative Negative - Negat isael POCT U GLU (test code = 3256) negative Negative - Negati ve POCT U KETONE (test code = 3258) n/a Negative - Neg ative POCT U BLD (test code = 3257) n/a Negative - Negati ve [facility]inal[facility] w/o Specific [id number] 21:50:00* Test Item Value Reference Range Interpretation Comme nts POCT PH U (test code = 3254) n/a 5-8 POCT U LEUK EST (test code = 3263) n/a Negative - Negative POCT U NIT (test code = 3262) n/a Negative - Negati ve POCT U PROT (test code = 3259) negative Negative - Negat isael POCT U GLU (test code = 3256) negative Negative - Negati ve POCT U KETONE (test code = 3258) n/a Negative - Neg ative POCT U BLD (test code = 3257) n/a Negative - Negati ve [facility]/SUPPLY [id number] 17:36:53 Ordered by an unspecified provider.[facility] w/o Specific [id number] 22:02:00* Test Item Value Reference Range Interpretation Comme nts POCT PH U (test code = 3254) na 5-8 POCT U LEUK EST (test code = 3263) na Negative - N egative POCT U NIT (test code = 3262) na Negative - Negati ve POCT U PROT (test code = 3259) neg Negative - Negat isael POCT U GLU (test code = 3256) neg Negative - Negati ve POCT U KETONE (test code = 3258) na Negative - Neg ative POCT U BLD (test code = 3257) na Negative - Negati ve Lab Interpretation (test cod e = 68559-9) Normal [facility] [id number] 22:50:46Ordered by an unspecified provider.[facility] Urinalysis w/o Specific [id number] 22:24:00* Test Item Value Reference Range Interpretation Comme nts POCT PH U (test code = 3254) na 5-8 POCT U LEUK EST (test code = 3263) na Negative - N egative POCT U NIT (test code = 3262) na Negative - Negati ve POCT U PROT (test code = 3259) neg Negative - Negat isael POCT U GLU (test code = 3256) neg Negative - Negati ve POCT U KETONE (test code = 3258) na Negative - Neg ative POCT U BLD (test code = 3257) na Negative - Negati ve Lab Interpretation (test cod e = 14944-7) Normal [facility] Urinalysis w/o Specific [id number] 20:39:00* Test Item Value Reference Range Interpretation Comme nts POCT PH U (test code = 3254) n/a 5-8 POCT U LEUK EST (test code = 3263) n/a Negative - Negative POCT U NIT (test code = 3262) n/a Negative - Negati ve POCT U PROT (test code = 3259) negative Negative - Negat isael POCT U GLU (test code = 3256) negative Negative - Negati ve POCT U KETONE (test code = 3258) n/a Negative - Neg ative POCT U BLD (test code = 3257) n/a Negative - Negati ve [facility] Urinalysis w/o Specific [id number] 20:42:00* Test Item Value Reference Range Interpretation Comme nts POCT PH U (test code = 3254) n/a 5-8 POCT U LEUK EST (test code = 3263) n/a Negative - N egative POCT U NIT (test code = 3262) n/a Negative - Negati ve POCT U PROT (test code = 3259) neg Negative - Negat isael POCT U GLU (test code = 3256) neg Negative - Negati ve POCT U KETONE (test code = 3258) n/a Negative - Neg ative POCT U BLD (test code = 3257) n/a Negative - Negati ve [facility] Urinalysis w/o Specific [id number] 13:47:00* Test Item Value Reference Range Interpretation Comme nts POCT PH U (test code = 3254) n/a 5-8 POCT U LEUK EST (test code = 3263) n/a Negative - N egative POCT U NIT (test code = 3262) n/a Negative - Negati ve POCT U PROT (test code = 3259) neg Negative - Negat isael POCT U GLU (test code = 3256) neg Negative - Negati ve POCT U KETONE (test code = 3258) n/a Negative - Neg ative POCT U BLD (test code = 3257) n/a Negative - Negati ve [facility] Urinalysis w/o Specific [id number] 22:03:00* Test Item Value Reference Range Interpretation Comme nts POCT PH U (test code = 3254) n/a 5-8 POCT U LEUK EST (test code = 3263) n/a Negative - N egative POCT U NIT (test code = 3262) n/a Negative - Negati ve POCT U PROT (test code = 3259) neg Negative - Negat isael POCT U GLU (test code = 3256) neg Negative - Negati ve POCT U KETONE (test code = 3258) n/a Negative - Neg ative POCT U BLD (test code = 3257) n/a Negative - Negati ve [facility] Urinalysis w/o Specific [id number] 21:00:00* Test Item Value Reference Range Interpretation Comme nts POCT PH U (test code = 3254) n/a 5-8 POCT U LEUK EST (test code = 3263) n/a Negative - N egative POCT U NIT (test code = 3262) n/a Negative - Negati ve POCT U PROT (test code = 3259) neg Negative - Negat isael POCT U GLU (test code = 3256) neg Negative - Negati ve POCT U KETONE (test code = 3258) n/a Negative - Neg ative POCT U BLD (test code = 3257) n/a Negative - Negati ve [facility] Urinalysis w/o Specific [id number] 18:36:00* Test Item Value Reference Range Interpretation Comme nts POCT PH U (test code = 3254) n/a 5-8 POCT U LEUK EST (test code = 3263) n/a Negative - Negative POCT U NIT (test code = 3262) n/a Negative - Negati ve POCT U PROT (test code = 3259) negative Negative - Negat isael POCT U GLU (test code = 3256) negative Negative - Negati ve POCT U KETONE (test code = 3258) n/a Negative - Neg ative POCT U BLD (test code = 3257) n/a Negative - Negati ve [facility] Urinalysis w/o Specific [id number] 20:51:00* Test Item Value Reference Range Interpretation Comme nts POCT PH U (test code = 3254) n/a 5-8 POCT U LEUK EST (test code = 3263) n/a Negative - Negative POCT U NIT (test code = 3262) n/a Negative - Negati ve POCT U PROT (test code = 3259) negative Negative - Negat isael POCT U GLU (test code = 3256) negaitve Negative - Negati ve POCT U KETONE (test code = 3258) n/a Negative - Neg ative POCT U BLD (test code = 3257) n/a Negative - Negati ve [facility] Urinalysis w/o Specific [id number] 18:46:00* Test Item Value Reference Range Interpretation Comme nts POCT PH U (test code = 3254) n/a 5-8 POCT U LEUK EST (test code = 3263) n/a Negative - N egative POCT U NIT (test code = 3262) n/a Negative - Negati ve POCT U PROT (test code = 3259) n/a Negative - Negat isael POCT U GLU (test code = 3256) n/a Negative - Negati ve POCT U KETONE (test code = 3258) n/a Negative - Neg ative POCT U BLD (test code = 3257) n/a Negative - Negati ve [facility] LAB [id number] 19:59:35Ordered by an unspecified provider.[facility] RESULTS 2024-05-05 19:59:29Ordered by an unspecified provider.[facility] DallasAlpha Fetoprotein-Maternal [id number] 18:41:45* Test Item Value Reference Range Interpretation Comme nts AFP-MS (test code = 2438805009) 17.4 ng/mL AFP-MS MoM (test code = 4812120390) 0.66 WEIGHT (test code = 1310687908) 179 lbs RACE (test code = 2082541637) GEST. AGE (test code = 2560437066) 15,0 INS. DEP (test code = 5078752385) No LMP (test code = 9675802422) [id number] US DATE (test code = 5138535701) PE DATE (test code = 5094588161) METHOD (test code = 7678797862) LMP MULT GEST (test code = 9373142556) No Down Syndrome History (test code = 8109029581) No NTD HX (test code = 8874677710) No INITAL OR REPEAT (test code = 6187450821) Initial Testing SMOKER (test code = 8100135219) No RH (test code = 4395436662) Unknown OSB INTERP (test code = 7722937396) See Note The maternal ser um AFP result is NOT elevated for a of thisgestational age. The risk of an open neural tube defect is less thanthe screening cut-off. OSB RSK (test code = 6675959946) 1:6730 The risk of OSB is equal to 1:6730The OSB cut-off is 2.53 (1:104) OSB SCRN (test code = 2696815548) Negative [facility] DallasRubella Screen [id number] 17:17:04* Test Item Value Reference Range Interpretation Comme nts Rubella screen IgG (test code = 0239312663) Positive Negative JUDIT (test code = JUDIT) Positive - Indicat es the patient was exposed to Rubella through infection or vaccination.Negative - Indicates the patient could be susceptible to Rubella infection.Equivocal - A second specimen should be sent. [facility] DallasVZV Antibody [id number] 17:17:04* Test Item Value Reference Range Interpretation Comme [facility] VZV IgG antibody (test code = 49009-3) Negative Negative JUDIT (test code = JUDIT) Positive - Indicat es the patient was exposed to VZV through infection or vaccination.Negative - Indicates the patient could be susceptible to VZV infection.Equivocal - A second specimen should be sent for testing. [facility] or [facility] Only - [id number] 05:39:15* Test Item Value Reference Range Interpretation Comme [facility] RPR (Qualitative) (test code = 90056-9) Nonreactive Nonreactive Lab Interpretation (test cod e = 16768-5) Normal [facility] DallasHcv [id number] 21:21:36* Test Item Value Reference Range Interpretation Comme [facility] HCV Ab (test code = 77297-0) Negative HCV Semi-Quantitative (test code = 27782-3) 0.01 [facility] DallasHepatitis B Surface [id number] 21:03:54 * Test Item Value Reference Range Interpretation Comme nts HBsAg Semi-Quantitative (bridget t code = 5195-3) 0.11 Negative [facility] with [id number] 20:23:45* Test Item Value Reference Range Interpretation Comme nts WBC (test code = 6690-2) 8.64 4.30-11.10 RBC (test code = 789-8) 3.77 3.93-5.25 L HGB (test code = 718-7) 10.9 g/dL 11.6-15.0 L HCT (test code = 4544-3) 32.9 % 35.7-45.2 L MCV (test code = 787-2) 87.3 fL 80.6-95.5 MCH (test code = 785-6) 28.9 pg 25.9-32.8 MCHC (test code = 786-4) 33.1 g/dL 31.6-35.1 RDW-SD (test code = 44042-8) 42.4 fL 39.0-49.9 RDW-CV (test code = 788-0) 13.5 % 12.0-15.5 PLT (test code = 777-3) 307 166-358 MPV (test code = 36354-3) 11.2 fL 9.5-12.9 NRBC/100 WBC (test code = 8136006981) 0.0 0.0-10.0 NRBC x10^3 (test code = 1746948138) See_Comment [Automated messa ge] The system which generated this result transmitted reference range: 10*3/?L. The reference range was not used to interpret this result as normal/abnormal. GRAN MAT (NEUT) % (test code = 770-8) 72.8 % IMM GRAN % (test code = 4409930773) 0.50 % LYMPH % (test code = 736-9) 20.5 % MONO % (test code = 5905-5) 4.9 % EOS % (test code = 713-8) 1.2 % BASO % (test code = 706-2) 0.1 % GRAN MAT x10^3(ANC) (test code = 6376682957) 6.30 10*3/uL 1.88-7.09 IMM GRAN x10^3 (test code = 2364827034) 0.04 10*3/uL 0.00-0.06 LYMPH x10^3 (test code = 731-0) 1.77 10*3/uL 1.32-3.29 MONO x10^3 (test code = 742-7) 0.42 10*3/uL 0.33-0.92 EOS x10^3 (test code = 711-2) 0.10 10*3/uL 0.03-0.39 BASO x10^3 (test code = 704-7) 0.01-0.07 Lab Interpretation (test code = 13747-8) Abnormal [facility] DallasHIV 1/2 Ag-Ab with [id number] 20:15:21* Test Item Value Reference Range Interpretation Comme nts HIV Semi-quantitative (test code = 01243-4) 0.18 Negative JUDIT (test code = JUDIT) Non-reactive for HIV-1 antigen and HIV-1/HIV-2 antibodies. ?No laboratory evidence of HIV infection. ?Repeat in 2-4 weeks if acute HIV infection is suspected. [facility] DallasGlucose 1 Hour Post [id number] 19:22:53* Test Item Value Reference Range Interpretation Comme nts GLUC 1 HR (test code = 4107357641) 117 mg/dL 120-170 L Lab Interpretation (test cod e = 74160-6) Abnormal [facility] DallasPrenatal Workup, Blood [id number] 18:07:00 * Test Item Value Reference Range Interpretation Comme nts ABO & RH (test code = 20) A POSITIVE IAT (test code = 1185) Negative [facility] DallasPOCT Urinalysis w/o Specific [id number] 19:50:00* Test Item Value Reference Range Interpretation Comme nts POCT PH U (test code = 3254) N/A 5-8 POCT U LEUK EST (test code = 3263) N/A Negative - Negative POCT U NIT (test code = 3262) N/A Negative - Negati ve POCT U PROT (test code = 3259) Negative Negative - Negat isael POCT U GLU (test code = 3256) Negative Negative - Negati ve POCT U KETONE (test code = 3258) N/A Negative - Neg ative POCT U BLD (test code = 3257) N/A Negative - Negati ve [facility] History and Physical Notes Date/Time Note Provider Source 2024-10-06 07:30:04 TRIAGE HISTORY & PHYSICAL IDENTIFYING DATA Danyelle Kenyon is 19 year old, /White, 39w6d, female with AIYANA 10/07/2024, by Last Menstrual Period. : 2003 Primary Care Physician: PATIENT DOES NOT HAVE A PCP CHIEF COMPLAINT sIOL HISTORY OF PRESENT ILLNESS Danyelle Kenyon is a 19 year old female at 39w6d presenting for scheduled induction of labor. Reports good FM. Denies vaginal bleeding, LOF, or regular contractions. Denies symptoms of PreE. PAST OBSTETRIC HISTORY OB History Para Term AB Living 1 SAB IAB Ectopic Multiple Live Births # Outcome Date GA Lbr Yoav/2nd Weight Sex Type Anes PTL Lv 1 Current PAST MEDICAL HISTORY Problem list: Patient Active Problem List Diagnosis Date Noted 39 weeks gestation of 10/06/2024 Encounter for induction of labor 10/05/2024 Operations: No past surgical history on file. No past medical history on file. CURRENT HEALTH STATUS Medications: Current Facility-Administered Medications Medication Dose Route Frequency Last Rate Last Admin carboprost (HEMABATE) injection 250 mcg 250 mcg Intramuscular Q2HPRN D5W-LR IV infusion 1,000 mL 1,000 mL IV Infusion TITRATE 75 mL/hr at 10/06/24 0650 Rate Verify at 10/06/24 0650 FENTanyl (PF) (SUBLIMAZE) injection 100 mcg 100 mcg Slow IV Push Q1HPRN 100 mcg at 10/06/24 0719 lactated ringers IV infusion 250 mL 250 mL IV Infusion PRN - SEE INSTRUCTIONS lidocaine 1% (XYLOCAINE) 10 mg/mL (1 %) injection 50 mL 50 mL Infiltration PRN - SEE INSTRUCTIONS methylergonovine (METHERGINE) injection 0.2 mg 0.2 mg Intramuscular Q4HPRN miSOPROStol (CYTOTEC) quarter-tablet 25 mcg 25 mcg Vaginal Q4H 25 mcg at 10/06/24 0430 miSOPROStoL (CYTOTEC) tablet 200 mcg 200 mcg Rectal PRN oxytocin (PITOCIN) 30 units in NS 500 mL IV infusion 600 mL/hr IV Infusion PRN proMETHazine (PHENERGAN) 25 mg in NS 50 mL IV piggyback (CNR) 25 mg IV Piggyback Q6HPRN sodium citrate-citric acid (BICITRA) 500-334 mg/5 mL solution 30 mL 30 mL Oral PRE-PROCEDURE ONCE tranexamic acid in (ISO-OS) sodium chloride 1,000 mg/100 mL (10 mg/mL) IV 1,000 mg 1,000 mg IV Piggyback PRN Allergies and drug reactions: Patient has no known allergies. HOME MEDICATIONS Medications Prior to Admission Medication Sig Dispense Refill Last Dose vit no.124/iron/folic ( VITAMIN ORAL) Take by mouth. Taking SOCIAL HISTORY Tobacco History: Social History Tobacco Use Smoking Status Former Types: Cigarettes Smokeless Tobacco Never Tobacco Comments Quit 12/2023 Drug History: Social History Substance and Sexual Activity Drug Use Not Currently Types: Marijuana Comment: last used ~02/2024 Alcohol History: Social History Substance and Sexual Activity Alcohol Use Not Currently FAMILY HISTORY Family History Problem Relation Age of Onset Heart Mother REVIEW OF SYSTEMS General: negative Constitutional: negative Eyes: negative ENT/Mouth: negative Cardiovascular: negative Respiratory: negative Gastrointestinal:negative Genitourinary: negative Musculoskeletal: negative Skin/breast: negative Neurological: negative Psychiatric: negative Endocrine: negative Hemat/Lymph: negative Allergic/Immuno:none VITAL SIGNS BP: (85-141)/(42-83) Temp: [36.5 ?C (97.7 ?F)-36.6 ?C (97.9 ?F)] Temp source: Temporal Artery (10/06 0410) Pulse: [72-106] Resp: -- SpO2: [95 %-100 %] Height: [165.1 cm (5' 5")] Weight: [104.3 kg (230 lb)] BMI (calculated): [38.27] PHYSICAL EXAMINATIONS General: patient alert and in no acute distress HEENT: symmetric, negative for masses Lungs: unlabored breathing Cardiology: peripheral pulses intact and regular Abdomen: soft, non-tender, non-distended, no liver, spleen or abnormal masses palpated and Gravid Extremities: no clubbing, cyanosis, or edema Neuro: patient moving all extremities, no facial droop : SVE: 250/-3 REVIEW OF LABORATORY, PATHOLOGY, AND RADIOLOGY DATA Lab results: Type & Screen HIV Hep B Syphilis Chlamydia ABO & RH Date Value Ref Range Status 10/06/2024 A POSITIVE Final No results found for: "HIVMULTIPLEX" No components found for: "HBSHBSAG" No results found for: "SYPIGG" C. trachomatis Nucleic Acid Date Value Ref Range Status 09/08/2024 Negative Negative Final IAT Date Value Ref Range Status 10/06/2024 Negative Final Varicella Rubella Glucose Group B Strep CBC VZV IgG antibody Date Value Ref Range Status 04/20/2024 Negative Negative Final Rubella screen IgG Date Value Ref Range Status 04/20/2024 Positive Negative Final GLUC 1 HR Date Value Ref Range Status 06/29/2024 75 (L) 120 - 170 mg/dL Final No results found for: "CGBS" HGB Date Value Ref Range Status 10/06/2024 10.8 (L) 11.6 - 15.0 g/dL Final HCT Date Value Ref Range Status 10/06/2024 32.1 (L) 35.7 - 45.2 % Final PLT Date Value Ref Range Status 10/06/2024 347 166 - 358 10*3/?L Final Active Hospital Problems Diagnosis Date Noted 39 weeks gestation of 10/06/2024 Encounter for induction of labor 10/05/2024 Resolved Hospital Problems No resolved problems to display. Present on Admission: Encounter for induction of labor 39 weeks gestation of ASSESSMENT AND PLAN Danyelle Kenyon is a 19 year old at 39w6d who presents for sIOL. sIOL - Reports good FM. Denies vaginal bleeding, LOF, or regular contractions. Denies symptoms of PreE. - FHT Cat 1 upon arrival - Mode: Backus: Contractions (number / 10 minute): 1-4 - SVE: Dilation: 2 / Effacement (%): 50 % / Station: -3 - SROM this morning at 0708, moderate fluid/thin mec per RN. - Delivery consents signed: 09/08/24 - Plan: Admit to L&D for induction of labor at 39w6d. Antepartum course reviewed - 1 h wnl, sero neg, RI, VZVNI, A+/neg, GBS neg, Pap NIL 04/15/24 - H/H, plt: 10.8 / 32.11, 347 on 10/06/24 - PVT of Adum Fetus - Presentation on admission: cephalic on BSUS - EFW 78%ile, posterior no previa placenta on MFM US 06/15/24 - Normal anatomy scan, NIPT low risk, Horizon neg, AFP neg Placenta Accreta Screening Prior ? : No Prior Uterine Surgery?: No Placenta low lying/previa in current ? : No Screening outcome: Negative screening. PLAN: Admit to L&D for induction of labor at 39w6d. Miya Briceno MSN, BULK INTAKE WORKER, EVALUATION MANAGER-C Informed consent discussed with the patient, including: condition, proposed care, treatments and services, alternative forms of treatment, and risks of no treatment. Details discussed around the procedures to be used, and the risks and hazards involved, potential benefits, and side effects of the patient s proposed care, treatment, and services; the likelihood of the patient achieving his or her goals; and any potential problems that might occur during recuperation. Reasonable alternative also discussed with the patient s proposed care, treatment, and services. The discussion encompasses risks, benefits, and side effects related to the alternative and risks related to not receiving the proposed care, treatment, and services. GER BILINGUAL Associated attestation - Savanah Gonzales MD - 10/06/2024 12:04 PM MANAGER BILINGUAL I have seen and evaluated this patient and agree with REHABILITATION PROGRAM COORDINATOR's note as written, admit for elective induction of labor Savanah Gonzales MD 10/06/2024 12:03 PM [facility] Procedure Notes Date/Time Note Provider Source 2024-10-06 09:15:21 Associated Order(s): Central Neuraxial Block Central Neuraxial Block Date/Time: 10/06/2024 9:15 AM Performed by: Anders Vences MD Authorized by: Anders Vences MD Patient Location: OB Reason for Block: OB request, Patient request, Labor analgesia, Surgical anesthesia and Post-op pain management Staff: Anesthesiologist: Anders Vences MD Performed by: anesthesiologist Preanesthetic Checklist: patient identified, IV checked, risks and benefits explained, monitors and equipment checked, timeout performed, pre-op evaluation, site marked and anesthesia consent Procedure: Type of Neuraxial: Epidural Epidural Description: 1st attempt Sterility Prep cap, drape, gloves, hand hygiene and mask Patient Position: sitting Prep: Betadine and patient draped Monitoring: heart rate, continuous pulse ox, heart rate / toco and NIBP Location: lumbar (1-5) Lumbar: L3-L4 Approach: midline Technique: EPI air and catheter Guidance with: landmark technique} Epidural/Spinal Edwards and/or Catheter: Epidural/Spinal Kit: Melody Needle Type: Tuohy Needle Gauge: 17 G Needle Length: 3.5 in (8.89 cm) Needle Insertion Depth: 7 Catheter Type: multiport Catheter Size: 19 G Catheter at Skin Depth: 12 Number of Attempts: 2 Test Dose: lidocaine 1.5% with epinephrine 1-to-200,000 Dose: 5 cc Catheter Securement Method: surgical tape, Tegaderm, clear occlusive dressing and liquid medical adhesive Assessment: Block Outcome: patient tolerated procedure well Procedure Assessment: patient tolerated procedure well with no complications Notes: Patient consented and positioned sitting upright with instructions given regarding positioning and maintaining a sterile field. Patient prepped and draped in sterile fashion. Epidural kit opened and medications prepared utilizing sterile protocol. EPI to Saline was used midline at L3L4 interspace. EPI was at 7 cm attempts x 2. Catheter threaded smoothly, taped at skin at 12 cm. Negative aspiration of blood or CSF x 3. Negative Test dose. Epidural catheter secured in place using tegederm and tape while maintaining insertion site sterility. Pumps settings are continuous 12cc/hr PCEA 4cc- 15 mins lockout. 5 ml bolus was given initially. Patient instructed to lay back down on back and given instructions on MATH AND SCIENCES DEPARTMENT CHAIR functionality. Fall precautions provided, patient vocalized understanding and all questions answered. Unable to push test dose through catheter,alligator clamp switched and new kit opened. GER BILINGUAL AN-ANESTHESIOLOGY ANESTHESIOLOGIST [facility] Notes Date/Time Note Provider Source 2024-10-07 19:56:59 Problem: Falls, Risk of Goal: Absence of falls Outcome: Resolved Problem: Pain Goal: Control of pain at or below patient's documented comfort goal Outcome: Resolved Goal: Reduction in pain sensation Outcome: Resolved Problem: Discharge Planning - Goal: Adequate for discharge Outcome: Resolved Goal: Mood stable Outcome: Resolved GER BILINGUAL Adry Oliver RN [facility] 2024-10-07 13:14:46 Patient: Danyelle Kenyon Procedure Summary Date: 10/06/24 Room / Location: Anesthesia Start: 802 Anesthesia Stop: 1829 Procedure: CENTRAL NEURAXIAL BLOCK Diagnosis: Scheduled Providers: Responsible Provider: Anders Vences MD Anesthesia Type: Epidural ASA Status: 2 Anesthesia Type: Epidural Last vitals BP 111/56 Temp Pulse 85 Resp SpO2 99 There were no known notable events for this encounter. Anesthesia Post Evaluation Patient participation: complete - patient participated Level of consciousness: awake and alert Pain management: satisfactory to patient Airway patency: patent Cardiovascular status: acceptable and blood pressure returned to baseline Respiratory status: acceptable Hydration status: acceptable GER BILINGUAL AN-ANESTHESIOLOGY ANESTHESIOLOGIST [facility] 2024-10-07 08:28:00 This note was copied from a baby's chart. Evaluation Situation Follow up visit Background Baby girl is 1 days old, born weighing 3935g, and has lost -1.27% of weight. Gestational Age: 39w6d at FEEDING STATUS Exclusively MATERNAL STATUS Hand expressing Assessment & Recommendation ASSISTANCE Assisted mom with positioning and asymmetrical latch technique in the football hold on the left and right. Mom was able to achieve a deep latch. The baby suckled in coordinated bursts with audible swallows. Mom's nipple was rounded upon release. Mom able to easily express colostrum. Taught hand expression to encouraged latch and for nipple care. Reviewed position and latch techniques. Mom denies pain with feeding. education provided. All questions answered. Mom does not have any other questions or concerns at this time. Mom instructed on how to contact Clinic Charge Nurse for assistance with feedings or to answer questions while in the hospital. Mom verbalized understanding. AKHIL Sanchez, RN, IBCLC A Ruiz RN [facility] 2024-10-07 08:06:30 Problem: Falls, Risk of Goal: Absence of falls Outcome: Progressing as expected Problem: Pain Goal: Control of pain at or below patient's documented comfort goal Outcome: Progressing as expected Goal: Reduction in pain sensation Outcome: Progressing as expected Problem: Discharge Planning - Goal: Adequate for discharge Outcome: Progressing as expected Goal: Mood stable Outcome: Progressing as expected [facility] 2024-10-06 18:59:14 Problem: Falls, Risk of Goal: Absence of falls Outcome: Progressing as expected Problem: Pain Goal: Control of pain at or below patient's documented comfort goal Outcome: Progressing as expected Goal: Reduction in pain sensation Outcome: Progressing as expected Problem: Discharge Planning - Goal: Adequate for discharge Outcome: Progressing as expected Goal: Mood stable Outcome: Progressing as expected [facility] 2024-10-06 17:42:00 This note was copied from a baby's chart. Evaluation Situation Initial visit Background Baby Girl is 1 hour old, born weighing 3935g. , Gestational Age: 39w6d at INFANT FEEDING STATUS Exclusively MATERNAL STATUS Hand expressing Assessment, Recommendations, Education Assisted mom with positioning and asymmetrical latch technique in the cross cradle hold on the eft breast. Initially the baby was latched shallow, but after giving more neck and back support she was able to achieve a deeper latch. The baby suckled in coordinated bursts with audible swallows. Mom's nipple was rounded upon release. Mom instructed on how to contact Clinic Charge Nurse for assistance with feedings or to answer questions while in the hospital. Mom verbalized understanding. Assessment (most recent) Assessment - 10/07/24 0829 General Information Visit Follow-up Mom's age (years) 19 years Gestational age 39 weeks 1 Parity 1 Living Children 1 Feeding plan Breast Breastfeed previously No Used pump previously No plans 6 months Breast Pump Has Breast Pump Electric Delivery method Infant Oral Assessment Oral assessment No changes from previous assessment Date of 10/06/24 Time of 1642 Infant location Mother Baby Unit Breast Assessment Breast Assessment No change from previous assessment Nipple & Areola Assessment Left Areola Pliable Right Areola Pliable Left Nipple Colostrum visible;Intact;Everted Right Nipple Colostrum visible;Everted Literature Resources Resources Understanding Mother and Baby Care Education hunger cues;On-demand feeds at least 8 or more over 24 hours;Benefits of breastmilk;Hand expression;Benefits of skin to skin contact;Signs of an effective latch;Infant stomach size;Calming techniques;2nd day/growth spurt cluster feeds;Position changes;Breaking seal;Pump frequency;Cleaning of pump parts;Warming of expressed breastmilk;Burping;Benefits of breast massage and hand expression;Engorgement signs and treatment;Risks of mastitis and signs, seek medical attention immediately Handouts given Urdu Clinic Charge Nurse Observation Assist with latch Position right side Football; latched effectively;Suckled in coordinated bursts;Audible swallows Position left side Football;Infant latched effectively;Suckled in coordinated bursts;Audible swallows Interventions Motherlove nipple cream;Placed skin to skin;Breast massage Mother demonstrated teach back of Breast massage and hand expression;Positioning and latching infant at breast Follow up Mom will call staff Recommended Feeding Plan Recommended feeding plan On-demand , 8-12 times in 24 hours not to exceed 6 hours between feeds;Frequent qclb-qa-pdrr time with parents;Pump/hand express minimum 8 times in 24 hours including nights. Pump for 15-25 min. OTHER $ SERVICES Follow-up KAHIL Sanchez, RN, IBCLC [facility] 2024-10-06 17:18:35 DELIVERY BY SPONTANEOUS VAGINAL DELIVERY Delivery Date: 10/06/2024 Delivery Time: 4:42 PM Delivery Summary The patient was admitted to the Labor & Delivery unit for elective IOL at 39 weeks 6 days. Delivery Physician: Savanah Gonzales MD Intrapartum Anesthesia/Analgesia: Epidural Mode of Delivery: Delivery of sher fetus with cephalic presentation Fetus Spontaneous vaginal delivery of head with cephalic position, occipital anterior. As the head crowned and distended the perineum, no episiotomy was performed. A blue towel was used to protect the perineum as the head crowned and delivered. The other hand was used to exert pressure on the occiput to control the delivery of the head. The perineum was pushed with a towel-draped hand as the head and mouth was delivered over the perineum. The head was allowed to rotate externally to achieve natural body posture. Examination of neck revealed no umbilical cord. The shoulder was delivered by gentle downward traction applied to head and downward traction for the delivery of anterior shoulder. This was followed by upward traction with delivery of posterior shoulder and body. After the delivery of , bulb suction was performed from ororpharynx and nostril with removal of thin meconium. A normal, female was delivered unto the maternal abdomen in presence of the attendant nurse Delayed cord clamping was observed and then the cord was double clamped, cut and the was handed off the field to the circulating nurse Placenta Placenta was delivered spontaneously while the abdominal hand lifted the uterus cephalad and other hand keeping the umbilical cord slightly taut. Laceration 2nd degree laceration Laceration Repair: 2nd Degree - Second degree laceration was repaired with 2-0 vircyl. Suture was used with continuous non-locking fashion to close the vaginal mucosa and submucosa. The hymenal ring is reapproximated and tied with the same suture. The fascia and muscle of perineum was reapproximated with continuous suturing from forchett toward inferior edge. Continuous subcutaneous stitch was used to reapproximate the perineal skin with the same suture. Fourth Stage Fourth stage of labor was managed by uterine massage with abdominal hand and infusion 30 units of pitocin mixed with intravenous fluid. QBL: 350ml Complications: none Weight: 3935 g 1 Minute 5 Minute 10 Minute Totals: 8 9 Savanah Gonzales MD [facility] 2024-10-06 17:18:07 Problem: Intrapartum process (including labor pain) Goal: Absence of or reduction of complications of labor 10/06/20241716 by Janet Lemus RN Outcome: Resolved 10/06/2024822 by Janet Lemus RN Outcome: Progressing as expected Goal: Able to cope with pain 10/06/20241716 by Janet Lemus RN Outcome: Resolved 10/06/2024822 by Janet Lemus RN Outcome: Progressing as expected Goal: Adequate to move to next level of care 10/06/20241716 by Janet Lemus RN Outcome: Resolved 10/06/2024822 by Janet Lemus RN Outcome: Progressing as expected Goal: Reduction in pain sensation 10/06/2024 1717 by Janet Lemus RN Outcome: Resolved 10/06/2024 0823 by Janet Lemus RN Outcome: Progressing as expected Problem: Discharge Planning - Goal: Adequate for discharge Outcome: Progressing as expected Goal: Mood stable Outcome: Progressing as expected [facility] 2024-10-06 12:04:31 Called to evaluate patient due to prolonged deceleration down to the 80's for 6 mins Upon my arrival, the strip had recovered with resuscitation measures: stopping pitocin( was on 2mu/min and was restarted) IVF bolus and maternal position changes - she was on her hands and knees. Patient comfortable with epidural IUPC and FSE applied. VE: 5/80/-1 FHR: 150's, moderate variability with early decels Backus: Ctx q 3-4 mins Plan: Will consider amnioinfusion if recurrent variable decels Will restart pitocin within the hour as long as strip continues to be reassuring Savanah Gonzales MD [facility] 2024-10-06 08:23:54 Problem: Intrapartum process (including labor pain) Goal: Absence of or reduction of complications of labor Outcome: Progressing as expected Goal: Able to cope with pain Outcome: Progressing as expected Goal: Adequate to move to next level of care Outcome: Progressing as expected Goal: Reduction in pain sensation Outcome: Progressing as expected Problem: Falls, Risk of Goal: Absence of falls Outcome: Progressing as expected Problem: Pain Goal: Control of pain at or below patient's documented comfort goal Outcome: Progressing as expected Goal: Reduction in pain sensation Outcome: Progressing as expected [facility] 2024-10-06 07:27:00 Name/ MRN / Age / Gender: Danyelle Kostas, [id number] 19 year old female BMI: Estimated body mass index is 38.27 kg/m? as calculated from the following: Height as of this encounter: 1.651 m (5' 5"). Weight as of this encounter: 104.3 kg (230 lb). Allergies: Patient has no known allergies. Last Vitals: BP Readings from Last 1 Encounters: 10/06/24 124/75 Pulse Readings from Last 1 Encounters: 10/06/24 78 SpO2 Readings from Last 1 Encounters: 10/06/24 100% Date of Surgery: 10/06/2024 Surgeon: * No surgeons listed * Procedure: CENTRAL NEURAXIAL BLOCK OR Location: [place] [facility] OUT OF OR - OR LOCATION Anesthesia Preop Eval (physical exam) Anesthesia Preop: Chart Review and Nuqn-hn-Evbs NPO Status Verified Clear Liquids: > 2 Hours Solid Food/Non-Clear Liquids: > 8 Hours Anesthesia History Anesthesia History Negative Previous Anesthetics/Airways Cardiovascular Negative Cardiac ROS (-) Hypertension Pulmonary (-) Asthma Neuro/Musculoskeletal (+) Obesity GI/Hepatic Negative GI/Hepatic ROS Hematology Negative Hematology ROS Renal Negative Renal ROS Skin Endo/Other Negative Endo/Other ROS 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 sIOL - Reports good FM. Denies vaginal bleeding, LOF, or regular contractions. Denies symptoms of PreE. - FHT Cat 1 upon arrival - Mode: Backus: Contractions (number / 10 minute): 1-4 - SVE: Dilation: 2 / Effacement (%): 50 % / Station: -3 - SROM this morning at 0708, moderate fluid/thin mec per RN. - Delivery consents signed: 09/08/24 - Plan: Admit to L&D for induction of labor at 39w6d. Antepartum course reviewed - 1 h wnl, sero neg, RI, VZVNI, A+/neg, GBS neg, Pap NIL 04/15/24 - H/H, plt: 10.8 / 32.11, 347 on 10/06/24 - PVT of Adhuyen Fetus - Presentation on admission: cephalic on BSUS - EFW 78%ile, posterior no previa placenta on MFM US 06/15/24 - Normal anatomy scan, NIPT low risk, Horizon neg, AFP neg Pediatric Preoperative Medication Instructions Continue taking all prescribed medications except: DURGA inhibitors, ARBs, diuretics, all oral diabetes medications Anticoagulant Therapy: Defer to surgeons Insulin: Take 1/2 dose the night prior to surgery. Hold on DOS. Phentermine: Alert [facility] anesthesiologist SGLT2 Inhibitors: "gliflozins" to be held for 3 days prior to elective surgeries GLP1 Agonosit: stop 7 days prior to surgery MAC Cases: Continue taking DURGA inhibitors and ARBs ASA Classification ASA: 2 Labs: Chemistry - CBC 10/06/2024 - - - - 15.60 (H) 10.8 (L) 347 - - - 32.1 (L) eGFR: - Date: - ANC: 11.89 (H) Date: 10/06/2024 LFTs - Coags AST: - AP: - Prot: - Ca: - PT: - Date: - ALT: - T Jackson: - Alb: - PTT: - Date: - PO4: - Date: - INR: - Date: - Cardiac Endocrine & other pBNP: - Date: - A1C: - Date: - Trop I: - Date: - POCT A1C: - Date: - CK: - Date: - TSH: - Date: - CKMB: - Date: - FT4: - Date: - LDL: - Date: - Lact: - Date: - Procal: - Date: - Respiratory -|-|-|-|- D-dimer: - ABG Date: - Date: - Miscellaneous Type and Screen: A POSITIVE Antibody: Negative Date: 10/06/2024 POCT : - Date: - Current Medications: No outpatient medications have been marked as taking for the 10/05/24 encounter (Hospital Encounter). Previous Surgeries: No past surgical history on file. Anesthesia Physical Exam General no apparent distress and alert and oriented x 3 Neuro/Psych Dental no notable dental hx Abdominal (+) gravid Airway Mallampati score:II TM distance:> 5 cm Neck ROM: full Mouth opening:normal Extremity Pulmonary pulmonary exam normal Other Cardiovascular cardiovascular exam normal Anesthesia Plan ASA Status: 2 Plan discussed during pre-op evaluation: General, Epidural, Spinal and CSE Anesthetic plan on DOS: Epidural Anesthesia plan discussed with: patient or customer support representative Post-Operative Analgesia: routine analgesia & antiemetics Recovery Plan: LDR Additional comments: [facility] 2024-09-30 12:56:51 error A Nayak [facility] 2024-09-29 15:45:00 Age: [age] year old GA: 38w6d 1. Encounter for supervision of normal first in third trimester 2. 38 weeks gestation of VE: /-3 IOL scheduled in 10/06 -Continue with kick count monitoring daily -Labor precautions given as follows: 1. Go to Labor and Delivery when your contractions are 5-7 minutes apart and you have been able to time them for an hour. If you live more than 30 minutes from the hospital, then go when they are 10 minutes apart and you have been able to time them for an hour. 2. BUT, there are 4 reasons to go to Labor and Delivery REGARDLESS of what else is happening, whether you are marichuy or not: 1. If your water breaks - - - it may be a gush or a constant trickle. If you are not sure, always come in to be checked. 2. Bleeding like your period. 3. If your baby's movements are less than 10 in an hour. If you are concerned this might be the case, drink a tall glass of cold fluids, lay down on your side on the couch or your bed and see how long it takes to note 10 movements - if less than 10, this needs to be evaluated immediately. 4. Contractions or Pain that is continuous. Normal labor contractions last only 45 seconds - 1 minute. - POCT Urinalysis w/o Specific [place] RTC 6 weeks post delivery for visit Future Appointments In 1 week ADC INDUCTION [facility] Health L&D Scheduled Appointments, [facility] In 1 month Savanah Gonzales MD [facility] Women's [facility] Savanah Gonzales MD [facility] 2024-09-22 16:00:00 Age: [age] year old GA: 37w6d 1. Encounter for supervision of normal first in third trimester 2. 37 weeks gestation of No concerns IOL scheduled on 10/06 -Continue with kick count monitoring daily -Labor precautions given as follows: 1. Go to Labor and Delivery when your contractions are 5-7 minutes apart and you have been able to time them for an hour. If you live more than 30 minutes from the hospital, then go when they are 10 minutes apart and you have been able to time them for an hour. 2. BUT, there are 4 reasons to go to Labor and Delivery REGARDLESS of what else is happening, whether you are marichuy or not: 1. If your water breaks - - - it may be a gush or a constant trickle. If you are not sure, always come in to be checked. 2. Bleeding like your period. 3. If your baby's movements are less than 10 in an hour. If you are concerned this might be the case, drink a tall glass of cold fluids, lay down on your side on the couch or your bed and see how long it takes to note 10 movements - if less than 10, this needs to be evaluated immediately. 4. Contractions or Pain that is continuous. Normal labor contractions last only 45 seconds - 1 minute. - POCT Urinalysis w/o Specific [place] HUGO in 1 week or PRN Future Appointments In 1 week Savanah Gonzales MD [facility], [place], [facility] Specialt In 2 weeks ADC INDUCTION [facility] L&D Scheduled Appointments, [facility] Susan Gonzales MD [facility] 2024-09-16 09:44:03 Recieved fax from [facility]. Signed and faxed back. Title 19- PP Support. NEISHA HEATON RN 09/16/2024 9:44 AM GER BILINGUAL Neisha Heaton RN [facility] 2024-09-15 16:00:00 Age: [age] year old GA: 36w6d 1. Encounter for supervision of normal first in third trimester 2. 36 weeks gestation of Wants IOL -Continue with kick count monitoring daily -Labor precautions given as follows: 1. Go to Labor and Delivery when your contractions are 5-7 minutes apart and you have been able to time them for an hour. If you live more than 30 minutes from the hospital, then go when they are 10 minutes apart and you have been able to time them for an hour. 2. BUT, there are 4 reasons to go to Labor and Delivery REGARDLESS of what else is happening, whether you are marichuy or not: 1. If your water breaks - - - it may be a gush or a constant trickle. If you are not sure, always come in to be checked. 2. Bleeding like your period. 3. If your baby's movements are less than 10 in an hour. If you are concerned this might be the case, drink a tall glass of cold fluids, lay down on your side on the couch or your bed and see how long it takes to note 10 movements - if less than 10, this needs to be evaluated immediately. 4. Contractions or Pain that is continuous. Normal labor contractions last only 45 seconds - 1 minute. - POCT Urinalysis w/o Specific [place] 3. Obesity affecting in third trimester, unspecified obesity type - Stable HUGO in 1 week or PRN Future Appointments In 1 week Savanah Gonzales MD [facility]'s [facility] Savanah Gonzales MD [facility] 2024-09-11 09:15:00 Images from the original note were not included. Venipuncture collection performed by clean technique on the right anticubitus. Total of 1 attempts were made. Slight pressure and a bandage/dressing were applied to the site(s). The patient experienced no complications. The following specimens were processed according to instructions and sent to [facility] laboratories per lab order on 09/11/2024 : LT BLUE SST RED LAV 1 PPT DK GREEN (LiHep) DK GREEN (SodH) LONG DK BLUE (K2) DK BLUE (S) ACD Blood Culture NIPT/NTD [facility] 2024-09-08 16:15:00 Age: [age] year old GA: 35w6d 1. Encounter for supervision of normal first in third trimester 2. 35 weeks gestation of - No concerns - PTL precautions and FKC's reviewed with patient Monitor for vaginal bleeding, loss of fluid, and/or contractions - Monitor for symptoms of preeclampsia (headache, visual disturbances, epigastric (under right ribs) pain, and increased blood pressure - If there is a perceived decrease in movement, monitor kick counts. Drink glass of water or juice and rest on left side for approximately two hours. If you feel 10 kicks (movements) over a period of two hours, this is normal. If you do not feel the fetus moving, present to OB clinic or antepartum unit at the [facility] - POCT Urinalysis w/o Specific [place] - Group B Streptococcus By PCR; Future - Gc & Chlamydia Amplified Assay; Future - Cbc with Diff; Future - Group B Streptococcus By PCR - Gc & Chlamydia Amplified Assay - Cbc with Diff 3. Obesity affecting in third trimester, unspecified obesity type TWG 49lbs, gained 5 lbs in last 2 weeks - Reviewed weight gain with her. Advised to watch diet- make her meals ad reduce eating out and add at least 30 mins exercise daily 4. Unstable lie, antepartum, single or unspecified fetus - [place]ep[place] - OB Ultrasound Transabdominal, Limited (>14 wks) HUGO in 1 week or PRN Future Appointments In 3 days Lab, [facility] Clinical Laboratory, [place] RAFA SCOTT BLE In 1 week Savanah Gonzales MD [facility]'s [facility] [place][note 2], [facility] Special Savanah Gonzales MD [facility] 2024-08-25 15:30:00 Age: [age] year old GA: 33w6d 1. Encounter for supervision of normal first in third trimester - POCT Urinalysis w/o Specific [place] 2. 31 weeks gestation of - Try Magnesium oxide for lef cramps PTL precautions and FKC's reviewed with patient Monitor for vaginal bleeding, loss of fluid, and/or contractions - Monitor for symptoms of preeclampsia (headache, visual disturbances, epigastric (under right ribs) pain, and increased blood pressure - If there is a perceived decrease in movement, monitor kick counts. Drink glass of water or juice and rest on left side for approximately two hours. If you feel 10 kicks (movements) over a period of two hours, this is normal. If you do not feel the fetus moving, present to OB clinic or antepartum unit at the [facility] 3. Anemia of mother in , antepartum - Continue supplements HUGO in 2 weeks or PRN Future Appointments In 2 weeks Savanah Gonzales MD [facility] Bacilio Gonzales MD T [facility] 2024-08-11 15:15:00 Age: [age] year old GA: 31w6d 1. Encounter for supervision of normal first in third trimester 2. 31 weeks gestation of PTL precautions and FKC's reviewed with patient Monitor for vaginal bleeding, loss of fluid, and/or contractions - Monitor for symptoms of preeclampsia (headache, visual disturbances, epigastric (under right ribs) pain, and increased blood pressure - If there is a perceived decrease in movement, monitor kick counts. Drink glass of water or juice and rest on left side for approximately two hours. If you feel 10 kicks (movements) over a period of two hours, this is normal. If you do not feel the fetus moving, present to OB clinic or antepartum unit at the [facility] - POCT Urinalysis w/o Specific [place] 3. Anemia of mother in , antepartum - Leg cramps improving - Continue Iron supplements as prescribed 4. Need for RSV immunoprophylaxis - RSV, Bivalent, Protein Subunit RSVpreF, Diluent Reconstituted, 0.5 mL, PF, (Abrysvo) HUGO in 2 weeks or PRN Future Appointments In 2 weeks [facility] Bac[facility] 2024-07-28 08:30:00 Age: [age] year old GA: 29w6d 1. Encounter for supervision of normal first in third trimester 2. 29 weeks gestation of PTL precautions and FKC's reviewed with patient Monitor for vaginal bleeding, loss of fluid, and/or contractions - Monitor for symptoms of preeclampsia (headache, visual disturbances, epigastric (under right ribs) pain, and increased blood pressure - If there is a perceived decrease in movement, monitor kick counts. Drink glass of water or juice and rest on left side for approximately two hours. If you feel 10 kicks (movements) over a period of two hours, this is normal. If you do not feel the fetus moving, present to OB clinic or antepartum unit at the [facility] - POCT Urinalysis w/o Specific [place] 3. Anemia of mother in , antepartum - Continue Iron supplements HUGO in 2 weeks or PRN Future Appointments In 2 weeks Savanah Gonzales MD [facility]'s [facility] [place][note 2], [facility] Special Savanah Gonzales MD [facility] 2024-07-16 15:30:00 Age: [age] year old GA: 28w1d 1. Encounter for supervision of normal first in third trimester 2. 28 weeks gestation of 3rd trimester teaching done- reviewed S/S of PTL (contractions, leakage of fluid and Vaginal bleeding) and also FKC. Also dicussed B-H, pelvic and lower back pains- expectations and differences with S/S of PTL She plans to breast feed BC options reviewed- she is currently unsure of her choice. Written information provided Peds: On- call - POCT Urinalysis w/o Specific [place] - TDAP VACCINE, >10 YRS, IM - FLU VACC ([id number]), 6 MO-64 YRS, .5ML, IM, TIV (FLUCELVAX) 3. Anemia of mother in , antepartum - Continue with Iron supplements as prescribed 4. Need for influenza vaccination - FLU VACC ([id number]), 6 MO-64 YRS, .5ML, IM, TIV (FLUCELVAX) 5. Need for Tdap vaccination - TDAP VACCINE, >10 YRS, IM HUGO in 2 weeks or PRN Future Appointments In 1 week Savanah Gonzales MD [facility] Savanah Gonzales MD [facility] 2024-06-30 15:45:00 Age: [age] year old GA: 25w6d 1. Encounter for supervision of normal first in second trimester 2. 25 weeks gestation of -c/o leg cramps. Measures for relief discussed -28 weeks labs results discussed precautions give - POCT Urinalysis w/o Specific [place] 3. Chlamydia infection affecting in second trimester - MOR today 4. Anemia of mother in , antepartum - continue with Iron supplements as prescribed Future Appointments In 2 weeks Savanah Gonzales MD [facility] Savanah Gonzales MD [facility] 2024-06-29 08:15:00 Loaded pt with 50g Glucola @0842. Pt finished Glucola @0845 with no issues. Will draw Pt labs around 0945. Mei Watkins [facility] 2024-06-29 08:15:00 Images from the original note were not included. Venipuncture collection performed by clean technique on the right anticubitus. Total of 1 attempts were made. Slight pressure and a bandage/dressing were applied to the site(s). The patient experienced no complications. The following specimens were processed according to instructions and sent to [facility] laboratories per lab order on 06/29/24: LT BLUE SST 2 RED 1 LAV 2 PPT DK GREEN (LiHep) DK GREEN (SodH) LONG DK BLUE (K2) DK BLUE (S) ACD Blood Culture NIPT/NTD [facility] 2024-06-17 13:30:00 Age: [age] year old GA: 24w0d 1. Encounter for supervision of normal first in second trimester 2. 24 weeks gestation of - Doing well Reviewed anatomy scan report with patient - ADC or [place] Only - Rpr; Future - Glucose 1 Hour Post Prandial; Future - HIV 1/2 Ag-Ab with Reflex; Future - Cbc with Diff; Future - POCT Urinalysis w/o Specific Dundee - Workup, Blood Bank; Future 3. Chlamydia infection affecting in second trimester - MOR next visit Future Appointments In 1 week 2, Adc Lab [facility] Clinical Laboratory, [facility] In 1 week Savanah Gonzales MD [facility] [place][note 2], [facility] Savnaah Gonzales MD [facility] 2024-06-01 13:23:57 Name and verified. Advised pt that if she wants to get treated for COVID, she will need to see PCP or UC. I will send her Safe Medication List as well. Verbalized understanding. NEISHA HEATON RN 06/01/2024 1:24 PM Neisha Heaton RN [facility] 2024-06-01 11:14:15 The patient tested positive for COVID-19 yesterday. She is inquiring about possible medication options and reports experiencing headaches, as well as a loss of taste and smell. Pls send to: [facility]/pharmacy #[id number] - [place], [place] - [address] AT [facility] Zulema Jefferson [facility] 2024-05-26 15:15:00 Age: [age] year old GA: 20w6d 1. Encounter for supervision of normal first in second trimester 2. 20 weeks gestation of - No concerns Anatomy ordered - POCT Urinalysis w/o Specific Dun[place] 3. Chlamydia infection affecting in second trimester MOR today Will treat partner, stressed to abstain till he is treated - Gc & Chlamydia Amplified Assay; Future - Trichomonas Amplified Assay; Future - Gc & Chlamydia Amplified Assay - Trichomonas Amplified Assay Future Appointments In 2 weeks 3, [facility] Usg Room [facility] Obstetric Ultrasound, [facility], [facility] In 3 weeks Savanah Gonzales MD [facility] [place][note 2], [facility], [facility] Savanah Gonzales MD [facility] 2024-05-20 13:07:16 Called and appointment scheduled. Torie Beck [facility] 2024-05-20 11:58:32 Pt would like to request a sooner appointment with Dr. Gonzales at her [place] [facility].Pt unable to make her 4 wk check up due to the weather. Please advise. Jose Beck [facility] 2024-04-30 12:06:39 Name and verified. Patient informed of lab results and verbalized understanding. [facility] 2024-04-30 10:18:46 Patient is returning a call for results. Please call her back at your convenience. Jennifer Kenyon [facility] 2024-04-30 09:51:43 Images from the original note were not included. Ghulam results received via fax. Voicemail left for patient to return call. Results signed, will scan and upload a copy to [facility]. [facility] 2024-04-27 09:37:48 Attempted to contact patient by phone, no answer, message left on voicemail to call back. Susi Jacobs RN 04/27/2024 9:37 AM Susi Jacobs RN [facility] 2024-04-24 11:51:40 Pt is returning nurse call. Please call back at [phone] Neisha Montague [facility] 2024-04-24 11:48:58 Pt is returning nurse call. Please call back at [phone] Neisha Montague [facility] 2024-04-23 16:01:13 Recieved fax from [facility]. Signed and faxed back. Title 19- backbrace, stocking, BP NEISHA HEATON RN 04/23/2024 4:01 PM Neisha Heaton RN [facility] 2024-04-20 09:00:00 Given 50gm fruit punch glucola. Finished at 0916. [facility] 2024-04-20 09:00:00 Images from the original note were not included. Venipuncture collection performed by clean technique on the left anticubitus. Total of 1 attempts were made. Slight pressure and a bandage/dressing were applied to the site(s). The patient experienced no complications. The following specimens were processed according to instructions and sent to [facility] laboratories per lab order on 04/20/2024 : LT BLUE SST 7 RED 1 LAV 4 PPT DK GREEN (LiHep) DK GREEN (SodH) LONG DK BLUE (K2) DK BLUE (S) ACD Blood Culture NIPT/NTD Patient has been identified by and name and was provided with cup, antiseptic towelette, and clean catch instructions. 2 urine specimen(s) sent. Unpreserved 1 Urine Culture 1 Aptima tube Other urine T [facility] 2024-04-20 09:00:00 Addended by: SIGIFREDO BUSTILLOS on: 04/24/2024 11:07 AM Modules accepted: Orders Sigifredo Bustillos MA [facility] 2024-04-20 09:00:00 Addended by: SIGIFREDO BUSTILLOS on: 04/24/2024 11:10 AM Modules accepted: Orders T [facility] 2024-04-15 14:30:00 Age: [age] year old GA: 15w0d Danyelle Kenyon is a 19 year old at 15w0 by LMP c/w early scan at the [facility] presents for Initial OB visit today. Denies vaginal bleeding, abdominal pain or cramps. She reports some nausea without vomiting but improves with regular small meals. Engaged, FOB is involved and supportive. She denies domestic violence/immediate partner violence. Sonogram confirmed an [facility] Assessment/Plan Encounter for supervision of normal first in second trimester (primary encounter diagnosis) 15 weeks gestation of Discussed do's and don'ts of , safe foods, safe medications. NOB folder given We discussed course, labs, aneuploidy and genetic carrier screening and ultrasounds. Expectations for weight gain this include 20-25 pounds. Exercise in discussed and encouraged. aneuploidy options were reviewed including NIPT: cFDNA test and 2nd trimester QUAD screen. The benefits and short falls of these screening tests were reviewed. Also discussed diagnostic tests: CVS vs amniocentesis. She has opted for NIPT and Horizon genetic carrier screening Reviewed Zika virus precautions .Discussed about COVID-19/flu precautions. Social distancing, frequent hand washings, signs/symptoms for testing and to follow CDC recommendations discussed. Vaccinations in reviewed: Tdap, Flu, COVID and RSV I discussed the call schedule and that I deliver here at [facility]. I discussed that I have two partners, Dr. Urias and Dr. Radford and that they may deliver her or take care of her during her . I discussed that at [facility] we do not have a NICU, and that high risk pregnancies or deliveries less than 36 weeks will be transferred to [place]. All questions were answered. NOB labs today precautions reviewed Encouraged to call if have any additional questions or concerns. Plan: POCT Urinalysis w/o Specific Dun[place], [facility] or [place] Only - Rpr, Cbc with Diff, Hcv Antibody, Hepatitis B Surface Antigen, HIV 1/2 Ag-Ab with Reflex, Workup, Blood Bank, Rubella Screen IgG, Urine Culture, Urine Drug (Immunoassay) - Comprehensive Drug Screen, VZV Antibody Screen, PAP Smear-Liquid Based, GC & CHLAMYDIA AMPLIFIED ASSAY, TRICHOMONAS AMPLIFIED ASSAY, Alpha Fetoprotein-Maternal Ser, Glucose 1 Hour Post Prandial, PAP Smear-Liquid Based, GC & CHLAMYDIA AMPLIFIED ASSAY, TRICHOMONAS AMPLIFIED ASSAY Other obesity affecting in second trimester Reviewed the risks associated obesity in - GDM, GTHN, Macrosomia, IUGR, labor dsytocia which could lead to with increased risk of wound breakdown. Discussed appropriate weight gain for her BMI (20-25lbs), healthy eating with regular moderate intensity exercise Return to clinic in 4 weeks for HUGO or PRN Discussed treatment options. Medications as ordered. Savanah Gonzales MD 04/15/2024 4:33 PM [facility]
--- NOTE | 2025-01-11 02:10 | ER ---
Nurse's Notes [facility] Name: Danyelle Kenyon Age: 19 yrs Sex: Female : 2005 Arrival Date: 01/11/2025 Time: 01:44 Bed 17 Private MD: Diagnosis: Urticaria, unspecified Presentation: 01/11 02:03 Chief complaint: Patient states: Breaking out in hives for the last 3 weeks. vc1 Coronavirus screen: Client denies travel out of the [place] in the last 14 days. At this time, the client does not indicate any symptoms associated with coronavirus-19. Ebola Screen: Patient negative for fever greater than or equal to 101.5 degrees Fahrenheit, and additional compatible Ebola Virus Disease symptoms Patient denies exposure to infectious person. Patient denies travel to an Ebola-affected area in the 21 days before illness onset. No symptoms or risks identified at this time. Onset: The symptoms/episode began/occurred acutely. Anaphylaxis evaluation, no signs or symptoms of anaphylaxis were noted. Initial Sepsis Screen: Does the patient meet any 2 criteria? No. Patient's initial sepsis screen is negative. Does the patient have a suspected source of infection? No. Patient's initial sepsis screen is negative. Risk Assessment: Do you want to hurt yourself or someone else? Patient reports no desire to harm self or others. Onset of symptoms is unknown. 02:03 Method Of Arrival: Ambulatory vc1 02:03 Acuity: NESS 3 vc1 Triage Assessment: 02:12 General: Appears in no apparent distress. uncomfortable, well groomed, well developed, vc1 well nourished, Behavior is calm, cooperative, appropriate for age. Pain: Denies pain. EENT: No deficits noted. No signs and/or symptoms were reported regarding the EENT system. Neuro: Level of Consciousness is awake, alert, obeys commands, Oriented to person, place, time, situation, Appropriate for age. Cardiovascular: Heart tones S1 S2 present Capillary refill < 3 seconds Patient's skin is warm and dry. Respiratory: Airway is patent Respiratory effort is even, unlabored, Respiratory pattern is regular, symmetrical, Breath sounds are clear bilaterally. GI: Abdomen is round non-distended. : No deficits noted. No signs and/or symptoms were reported regarding the genitourinary system. Derm: Skin is intact, is healthy with good turgor, Skin is dry, Skin is normal, Skin temperature is warm. Musculoskeletal: Circulation, motion, and sensation intact. Range of motion: intact in all extremities. 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 - Infectious Disease History:: Denies. - Social history:: Smoking status: Patient denies any tobacco usage or history of. - Family history:: not pertinent. Screenin:09 [facility] ED Fall Risk Assessment (Adult) History of falling in the last 3 months, vc1 including since admission No falls in past 3 months (0 pts) Confusion or Disorientation No (0 pts) Intoxicated or Sedated No (0 pts) Impaired Gait No (0 pts) Mobility Assist Device Used No (0 pt) Altered Elimination No (0 pt) Score/Fall Risk Level 0 - 2 = Low Risk Oriented to surroundings, Maintained a safe environment, Educated pt \T\ family on fall prevention, incl call for assistance when getting out of bed. Abuse screen: Denies threats or abuse. Nutritional screening: No deficits noted. Tuberculosis screening: No symptoms or risk factors identified. Assessment: 02:13 General: See triage assessment. Respiratory: Airway is patent Respiratory effort is vc1 even, unlabored, Respiratory pattern is regular, symmetrical, Breath sounds are clear bilaterally. Vital Signs: 02:03 BP 101 / 87; Pulse 97; Resp 18; Temp 98.1; Pulse Ox 100% ; Weight 95.25 kg; Height 5 vc1 ft. 4 in. ; 02:03 Body Mass Index 36.04 (95.25 kg, 162.56 cm) vc1 ED Course: 01:47 Patient arrived in ED. gm2 01:48 López Long MD is Attending Physician. rt 02:00 Inserted saline lock: 20 gauge in right antecubital area, using aseptic technique. jb4 Blood collected. 02:06 Triage completed. vc1 02:09 Arm band placed on right wrist. vc1 02:11 Patient has correct armband on for positive identification. Bed in low position. Call vc1 light in reach. Provided Education on: benadryl. Pulse ox on. NIBP on. 02:14 Ana María Gallegos, RN is Primary Nurse. vc1 02:14 No provider procedures requiring assistance completed. Patient did not have IV access vc1 during this emergency room visit. Administered Medications: 02:19 Drug: Famotidine IVP 20 mg IVP once; dilute with 10 mL 0.9% NaCl; give over 2 minutes jb4 Route: IVP; Site: right antecubital; 02:41 Follow up: Response: No adverse reaction; Marked relief of symptoms vc1 02:19 Drug: Decadron - Dexamethasone IVP 10 mg IVP once Route: IVP; Site: right antecubital; jb4 02:41 Follow up: Response: No adverse reaction; Marked relief of symptoms vc1 Medication: 02:12 VIS not applicable for this client. vc1 Outcome: 02:09 Discharge ordered by . rt 02:14 Discharged to home ambulatory, with family, vc1 02:14 Condition: stable 02:14 Discharge instructions given to patient, Instructed on discharge instructions, follow up and referral plans. medication usage, Demonstrated understanding of instructions, follow-up care, medications, Prescriptions given X 1, 02:48 Patient left the ED. vc1 Signatures: Isidro Tellez RN RN jb4 Ana María Gallegos RN RN vc1 López Long MD MD rt Rosario Narvaez gm2 Corrections: (The following items were deleted from the chart) 02:10 02:03 BP 101 / 87; Pulse 97bpm; Resp 18bpm; Pulse Ox 100%; Temp 98.1F; 95.25 kg; Height vc1 9 ft. 4 in.; BMI: 11.7; vc1
--- NOTE | 2025-01-11 02:10 | EDPHYS ---
Physician Documentation [facility] Name: Danyelle Kenyon Age: 19 yrs Sex: Female : 2005 Arrival Date: 01/11/2025 Time: 01:44 Bed 17 Private MD: ED Physician López Long HPI: 01/11 03:02 This 19 yrs old Female presents to ER via Ambulatory with complaints of rt Allergic Reaction. 03:02 Patient presents to the ED with intermittent hives for the past 3 weeks, states that rt this occurred after changing detergents. The patient denies difficulty breathing, tongue swelling. Denies other acute complaints, symptoms are mild in severity, no other aggravating or alleviating factors.. 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 - Infectious Disease History:: Denies. - Social history:: Smoking status: Patient denies any tobacco usage or history of. - Family history:: not pertinent. ROS: 03:02 Constitutional: Negative for fever, chills, and weight loss, Cardiovascular: Negative rt for chest pain, palpitations, and edema, Respiratory: Negative for shortness of breath, cough, wheezing, and pleuritic chest pain, Abdomen/GI: Negative for abdominal pain, nausea, vomiting, diarrhea, and constipation, Neuro: Negative for headache, weakness, numbness, tingling, and seizure, 03:02 Skin: Positive for Hives, rash, Exam: 03:02 Constitutional: This is a well developed, well nourished patient who is awake, alert, rt and in no acute distress. Head/Face: Normocephalic, atraumatic. Chest/axilla: Normal chest wall appearance and motion. Nontender with no deformity. No lesions are appreciated. Cardiovascular: Regular rate and rhythm with a normal S1 and S2. No gallops, murmurs, or rubs. Normal PMI, no JVD. No pulse deficits. Respiratory: Lungs have equal breath sounds bilaterally, clear to auscultation and percussion. No rales, rhonchi or wheezes noted. No increased work of breathing, no retractions or nasal flaring. Abdomen/GI: Soft, non-tender, with normal bowel sounds. No distension or tympany. No guarding or rebound. No evidence of tenderness throughout. 03:02 Skin: Diffuse urticarial rash noted. Vital Signs: 02:03 BP 101 / 87; Pulse 97; Resp 18; Temp 98.1; Pulse Ox 100% ; Weight 95.25 kg; Height 5 vc1 ft. 4 in. ; 02:03 Body Mass Index 36.04 (95.25 kg, 162.56 cm) vc1 MDM: 02:01 Medical Screening Exam initiated rt 03:02 Differential diagnosis: Urticaria. Data reviewed: vital signs, nurses notes. rt Counseling: I had a detailed discussion with the patient and/or guardian regarding the historical points, exam findings, and any diagnostic results supporting the discharge/admit diagnosis, the need for outpatient follow up, to return to the emergency department if symptoms worsen or persist or if there are any questions or concerns that arise at home. ED course: No signs of anaphylaxis, urticaria improving with antihistamines, steroids.. Administered Medications: 02:19 Drug: Famotidine IVP 20 mg IVP once; dilute with 10 mL 0.9% NaCl; give over 2 minutes jb4 Route: IVP; Site: right antecubital; 02:41 Follow up: Response: No adverse reaction; Marked relief of symptoms vc1 02:19 Drug: Decadron - Dexamethasone IVP 10 mg IVP once Route: IVP; Site: right antecubital; jb4 02:41 Follow up: Response: No adverse reaction; Marked relief of symptoms vc1 Disposition Summary: 01/11/25 02:09 Discharge Ordered Notes: Location: Home rt Problem: new rt Symptoms: are unchanged rt Condition: Stable rt Diagnosis - Urticaria, unspecified rt Followup: rt - With: Private Physician - When: 2 - 3 days - Reason: Discharge Instructions: - Discharge Summary Sheet rt - Hives rt Forms: - Medication Reconciliation Form rt - Antibiotic Education rt - Prescription Opioid Use rt - Patient Portal Instructions rt - Leadership Thank You Letter rt Prescriptions: - Prednisone 20 mg Oral Tablet - take 2 tablets ORAL route once daily for 5 days; 10 tablet; Refills: 0, Product rt Selection Permitted Signatures: Isidro Tellez, RN RN jb4 Ana María Gallegos RN RN vc1 López Long MD MD rt
[2025-01-11] MEDS ORDERED: FAMOTIDINE 20 MG/2 ML VIAL IV ONE (02:13)
[2025-01-11] MEDS ORDERED: dexAMETHasone 10 MG/ML VIAL ONE (02:13)
[2025-01-11 03:22] VITALS: BP 101/87; TEMP 98.1; O2SAT 100
== END 2025-01-11 02:48 | disposition home or self-care (01) ==
LOC: ER 01:44
DX: L50.9 Urticaria, unspecified (principal)
CPT/HCPCS: 96375; 96374; 99284; J1100